=== PATIENT | male | born 1955 | race Two or more races ===

== ENCOUNTER 2016-09-28 16:37 | Inpatient (IN) | payer MEDICARE, OTHER ==
[~2016-09-28] VITALS: Ht 152.4 cm; Wt 80.8 kg
--- NOTE | 2016-09-28 17:56 | PHYS DOC ---
Past Medical History Past Medical History: Arthritis, CHF, COPD, CVA, Diabetes-Type II, Hypertension , [place] Alcohol Use: Occasionally Drug Use: None Adult General Chief Complaint Chief Complaint: LOWER EXTREMITY SWELLING HPI HPI Patient is a 61 year old male who presents with bilateral lower extremity edema. Patient reports three-day history of increased pain and swelling to bilateral lower extremities extending from his ankles to his scrotum and abdomen. Reports pain and swelling are symmetric. Denies fevers or chills, chest pain, shortness of breath. History of CHF for which she takes Lasix and states he has been compliant. He has history of previous hospital admissions to [facility]. 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 Oxygen saturation upon arrival was in the 80s requiring placement of nasal cannula. Review of Systems Review of Systems Constitutional: Denies fever or chills Eyes: Denies change in visual acuity HENT: Denies nasal congestion or sore throat Respiratory: Denies cough or shortness of breath Cardiovascular: Denies chest pain, reports edema GI: Denies abdominal pain, nausea, vomiting, bloody stools or diarrhea Musculoskeletal: Reports leg pain and swelling Integument: Reports lower extremity rash Neurologic: Denies headache, focal weakness or sensory changes Current Medications Current Medications Current Medications Medications (Trade) Dose Ordered Sig/Ramiro Start Time Stop Time Status Last Admin Dose Admin Furosemide (Lasix) 40 mg 1X ONCE 09/28/16 18:45 09/28/16 18:46 DC 09/28/16 19:01 40 MG Vancomycin HCl (Vanco Per Pharmacy) 1 each PRN DAILY PRN 09/28/16 18:45 Vancomycin HCl 2 gm/Sodium Chloride 500 ml @ 250 mls/hr 1X ONCE 09/28/16 19:00 09/28/16 20:59 DC 09/28/16 19:10 250 MLS/HR Allergies Allergies Allergies Coded Allergies Type Severity Reaction Last Updated Verified lisinopril Allergy Mild COUGH 09/28/16 Yes Physical Exam Physical Exam Constitutional: Well developed, well nourished, no acute distress, non-toxic appearance. HENT: Normocephalic, atraumatic, bilateral external ears normal, oropharynx moist, nose normal. Eyes: conjunctiva normal, no discharge. Neck: supple, no stridor. Cardiovascular: RRR, no murmurs, no edema. Lungs & Thorax: Diminished breath sounds, LCTAB, no wheezing, no respiratory distress. Abdomen: soft, nontender, nondistended. Skin: Warm, dry, no erythema, no rash. Back: No tenderness. Extremities: 3+ pitting edema extending from ankles to thighs, bilateral calf tenderness present, distal pulses palpable Neurologic: Alert and oriented X 3, no focal deficits noted. Psychologic: Affect normal, judgement normal, mood normal. Current Patient Data Vital Signs Vital Signs Date Time Temp Pulse Resp B/P (MAP) Pulse Ox O2 Delivery O2 Flow Rate FiO2 09/28/16 17:30 98.4 72 22 195/89 (124) 87 Room Air 98.4 Lab Values Laboratory Tests Test 09/28/16 17:35 White Blood Count 7.6 x10^3/uL (4.0-11.0) Red Blood Count 5.35 x10^6/uL (4.30-5.70) Hemoglobin 14.3 g/dL (13.0-17.5) Hematocrit 45.6 % (39.0-53.0) Mean Corpuscular Volume 85 fL (79-100) Mean Corpuscular Hemoglobin 27 pg (25-35) Mean Corpuscular Hemoglobin Concent 31 g/dL (31-37) Red Cell Distribution Width 16.6 % (11.5-14.5) H Platelet Count 258 x10^3/uL (140-400) Neutrophils (%) (Auto) 76 % (31-73) H Lymphocytes (%) (Auto) 10 % (24-48) L Monocytes (%) (Auto) 12 % (0-9) H Eosinophils (%) (Auto) 1 % (0-3) Basophils (%) (Auto) 1 % (0-3) Neutrophils # (Auto) 5.8 x10^3uL (1.8-7.7) Lymphocytes # (Auto) 0.8 x10^3/uL (1.0-4.8) L Monocytes # (Auto) 0.9 x10^3/uL (0.0-1.1) Eosinophils # (Auto) 0.1 x10^3/uL (0.0-0.7) Basophils # (Auto) 0.0 x10^3/uL (0.0-0.2) Prothrombin Time 13.3 SEC (11.7-14.0) Prothrombin Time INR 1.1 (0.8-1.1) PTT 38 SEC (24-38) Sodium Level 145 mmol/L (136-145) Potassium Level 4.1 mmol/L (3.5-5.1) Chloride Level 106 mmol/L (98-107) Carbon Dioxide Level 35 mmol/L (21-32) H Anion Gap 4 (6-14) L Blood Urea Nitrogen 16 mg/dL (8-26) Creatinine 1.0 mg/dL (0.7-1.3) Estimated GFR (Cockcroft-Gault) 76.5 BUN/Creatinine Ratio 16 (6-20) Glucose Level 72 mg/dL (70-99) Calcium Level 9.1 mg/dL (8.5-10.1) Total Bilirubin 0.5 mg/dL (0.2-1.0) Aspartate Amino Transferase (AST) 14 U/L (15-37) L Alanine Aminotransferase (ALT) 23 U/L (16-63) Alkaline Phosphatase 117 U/L (46-116) H Troponin I Quantitative 0.023 ng/mL (0.000-0.055) UM-Nqm-D-Type Natriuretic Peptide 1366 pg/mL (0-124) H Total Protein 7.4 g/dL (6.4-8.2) Albumin 2.9 g/dL (3.4-5.0) L Albumin/Globulin Ratio 0.6 (1.0-1.7) L Laboratory Tests 09/28/16 17:35 Laboratory Tests 09/28/16 17:35 EKG EKG interpreted by me: NSR rate 69, no acute ST/T wave changes, normal intervals, no ectopy.[] Radiology/Procedures Radiology/Procedures CXR: interpreted by me: cardiomegaly, pulmonary edema, no infiltrate, no pneumothorax.[] Course & Med Decision Making Course & Med Decision Making Pertinent Labs and Imaging studies reviewed. (See chart for details) The patient presents with lower extremity edema and dyspnea. Hypoxic on room air requiring oxygen by nasal cannula to maintain oxygen saturation greater than 90%. No distress at time of my exam. BNP elevated with cardiomegaly and pulmonary edema on chest x-ray. Obvious peripheral edema. Gave IV Lasix in the emergency department. Has overlying erythema of lower extremities. Also gave vancomycin for cellulitis. Recommended admission to the hospital for further evaluation and treatment. The patient agreed with plan of care. Discussed with Dr. hamilton who agrees to admit to inpatient status. Cardiology consult to Dr. Velez. The patient is being admitted in stable condition. [] Dragon Disclaimer Dragon Disclaimer This electronic medical record was generated, in whole or in part, using a voice recognition dictation system. Departure Departure Impression: Primary Impression: Acute exacerbation of congestive heart failure Additional Impressions: Peripheral edema Hypoxia Essential hypertension Disposition: 09 ADMITTED INPATIENT Admitting Physician: Estefani Hamilton Condition: STABLE Problem Qualifiers DEQUAN SANCHES MD Sep 28, 2016 17:56
[2016-09-28 18:00] LABS: BASO % 1 % (0-3); EOS % 1 % (0-3); HEMATOCRIT 45.6 % (39.0-53.0); HEMOGLOBIN 14.3 g/dL (13.0-17.5); LYMPH # 0.8 x10^3/uL (1.0-4.8); LYMPH % 10 % (24-48); MEAN CORPUSCULAR HEMOGLOBIN 27 pg (25-35); MEAN CORPUSCULAR HGB CONC 31 g/dL (31-37); MEAN CORPUSCULAR VOLUME 85 fL (79-100); MONO % 12 % (0-9); NEUT % 76 % (31-73); PLATELET COUNT 258 x10^3/uL (140-400); RED BLOOD COUNT 5.35 x10^6/uL (4.30-5.70); RED CELL DISTRIBUTION WIDTH 16.6 % (11.5-14.5); WHITE BLOOD COUNT 7.6 x10^3/uL (4.0-11.0)
[2016-09-28] MEDS ORDERED: POTA20TA4 PO (18:02)
[2016-09-28] MEDS ORDERED: CLOP75TA PO (18:02)
[2016-09-28] MEDS ORDERED: DIAZ5TAB PO (18:02)
[2016-09-28] MEDS ORDERED: OXYC5CAP PO (18:02)
[2016-09-28] MEDS ORDERED: INSU100I13 SQ (18:02)
[2016-09-28] MEDS ORDERED: FAMO-63 PO (18:02)
[2016-09-28] MEDS ORDERED: DIPH25CA58 PO (18:02)
[2016-09-28] MEDS ORDERED: LIPITOR80 MG PO (18:02)
[2016-09-28] MEDS ORDERED: LOSA100T2 PO (18:02)
[2016-09-28] MEDS ORDERED: CARV6.25 PO (18:02)
[2016-09-28] MEDS ORDERED: SPIR25TA PO (18:02)
[2016-09-28] MEDS ORDERED: SENN8.6T99 PO (18:02)
[2016-09-28] MEDS ORDERED: METF500T PO (18:02)
[2016-09-28 18:10] LABS: CALCIUM 9.1 mg/dL (8.5-10.1); GFR 76.5; POTASSIUM 4.1 mmol/L (3.5-5.1)
[2016-09-28 18:14] LABS: INR 1.1 (0.8-1.1); PROTHROMBIN TIME PATIENT 13.3 SEC (11.7-14.0)
[2016-09-28 18:20] LABS: ALBUMIN 2.9 g/dL (3.4-5.0); ALBUMIN/GLOBULIN RATIO 0.6 (1.0-1.7); TOTAL BILIRUBIN 0.5 mg/dL (0.2-1.0); TOTAL PROTEIN 7.4 g/dL (6.4-8.2)
[2016-09-28] MEDS ORDERED: FUROSEMIDE 40 MG/4 ML VIAL. IVP ONE (18:45)
--- NOTE | 2016-09-28 18:55 | RAD ---
EXAM: Bilateral lower extremity venous Doppler. HISTORY: Bilateral lower extremity pain/swelling. COMPARISON: None. FINDINGS: Grayscale and Doppler analysis of the both lower extremity deep venous systems was performed with graded compression and augmentation. The common femoral, greater saphenous, superficial femoral, popliteal and calf veins were assessed. There is no evidence of deep venous thrombosis. IMPRESSION: 1. No evidence of deep venous thrombosis. Electronically signed by: Veronica Humphries MD (09/28/2016 6:51 PM) [facility]
[2016-09-28] MEDS ORDERED: VANCOMYCIN 2 GM in IV NORMAL SALINE 500ML BAG 500 ML IV ONE (19:00)
[2016-09-28] MEDS ORDERED: ACETAMINOPHEN 325 MG TABLET. PO PRN (20:15)
[2016-09-28] MEDS ORDERED: NITROGLYCERIN SUBLINGUAL 0.4 MG BOTTLE OF 25. SL PRN (20:15)
[2016-09-28] MEDS ORDERED: ONDANSETRON PF 4 MG/2 ML VIAL. IV PRN (20:15)
[2016-09-28] MEDS ORDERED: MORPHINE SULFATE 2 MG/ML DISP.SYRIN. IV PRN (20:15)
[2016-09-28 20:30] VITALS: BP 175/77
[2016-09-28] MEDS ORDERED: PROAIR HFA8.5 GM INH (21:06)
[2016-09-28] MEDS ORDERED: ASPI-482 PO (21:06)
[2016-09-28] MEDS ORDERED: POLY17PO29 PO (21:06)
[2016-09-28] MEDS ORDERED: CHLO25TA PO (21:06)
[2016-09-28] MEDS ORDERED: MAG355OR11 PO (21:06)
[2016-09-28] MEDS ORDERED: FLUT1DIS3 IH (21:06)
[2016-09-28] MEDS ORDERED: ALBUTEROL SULFATE 2.5 MG/3 ML NEBU. NEB PRN (22:30)
[2016-09-28] MEDS ORDERED: MAG HYDROX/ALUMINUM HYD/SIMETH 30 ML ORAL.SUSP PO PRN (22:30)
[2016-09-28] MEDS ORDERED: oxyCODONE IR 5 MG TABLET PO PRN (22:30)
[2016-09-28] MEDS ORDERED: NON FORMULARY ITEM (Albuterol Sulfate (Proair Hfa Inhaler) 1 PUFF) INH PRN (22:30)
[2016-09-28] MEDS ORDERED: DEXTROSE 50% 25 GM / 50ML DISP.SYRIN. IV PRN (22:30)
[2016-09-28] MEDS ORDERED: diazePAM 5 MG TABLET PO PRN (22:30)
--- NOTE | 2016-09-28 22:39 | PDOC1 ---
History and Physical Date of Admission Date of Admission DATE: 09/28/16 TIME: 22:19 Identification/Chief Complaint Chief Complaint shortness of breath Problems: Source Source: Caregiver, Chart review, Patient History of Present Illness History of Present Illness MR. Forde, is a 61 year old male who presents with bilateral lower extremity edema. 3 days of worsening LE pain, and edema. Thebilateral lower extremities extending from his ankles to his scrotum and abdomen. Skin on LE is now red with mult small blisters that are deep novak in color and w fluctuance on touch. Reports pain and swelling are symmetric. Denies fevers or chills, chest pain, shortness of breath. History of CHF "[facility] told me I had a blown valve" he thinks he takes Lasix, but maybe metalozone. He saw Dr. Clinton at for [facility] a few weeks ago recent TIA, and recent carotid surg on the right He states he has been compliant, but seems unsure of some details hypoxia noted in ER Past Medical History Cardiovascular: CAD, CHF, HTN CENTRAL NERVOUS SYSTEM: TIA Musculoskeletal: low back pain Family History Family History: No Significant Social History Smoke: No ALCOHOL: none Drugs: None Current Problem List Problem List Problems Medical Problems: (1) Congestive heart failure Status: Acute Problems: Current Medications Current Medications Current Medications Furosemide (Lasix) 40 mg 1X ONCE IVP Last administered on 09/28/16 19:01; Start 09/28/16 at 18:45; Stop 09/28/16 at 18:46; Status DC Vancomycin HCl (Vanco Per Pharmacy) 1 each PRN DAILY PRN MC SEE COMMENTS; Start 09/28/16 at 18:45 Vancomycin HCl 2 gm/Sodium Chloride 500 ml @ 250 mls/hr 1X ONCE IV Last administered on 09/28/16 19:10; Start 09/28/16 at 19:00; Stop 09/28/16 at 20:59 ; Status DC Ondansetron HCl (Zofran) 4 mg PRN Q8HRS PRN IV NAUSEA/VOMITING; Start 09/28/16 at 20:15; Stop 09/29/16 at 20:14 Morphine Sulfate 2 mg PRN Q2HR PRN IV PAIN; Start 09/28/16 at 20:15; Stop 09/29 at 20:14 Acetaminophen (Tylenol) 650 mg PRN Q4HRS PRN PO FEVER; Start 09/28/16 at 20:15 ; Stop 09/29/16 at 20:14 Nitroglycerin (Nitrostat) 0.4 mg PRN Q5MIN PRN SL CHEST PAIN; Start 09/28/16 at 20:15; Stop 09/29/16 at 20:14 Active Scripts Active Reported Proair Hfa Inhaler (Albuterol Sulfate) 8.5 Gm Hfa.aer.ad 1 Puff INH PRN Q6HRS PRN Advair 250-50 Diskus (Fluticasone/Salmeterol) 1 Each Disk.w.dev 1 Puff IH BID Miralax (Polyethylene Glycol 3350) 17 Gm Powd.pack 1 Packet PO DAILY Chlorthalidone 25 Mg Tablet 1 Tab PO DAILY Aspir 81 (Aspirin) 81 Mg Tablet.dr 81 Mg PO DAILY Maalox Advanced Suspension (Mag Hydrox/Aluminum Hyd/Simeth) 355 Ml Oral.susp 355 Ml PO PRN Q4HRS Aldactone (Spironolactone) 25 Mg Tablet 1 Tab PO DAILY Senokot (Sennosides) 8.6 Mg Tablet 2 Tab PO BID Klor-Con M20 (Potassium Chloride) 20 Meq Tab.er.prt 1 Tab PO DAILY Oxycodone Hcl 5 Mg Capsule 1 Cap PO PRN Q4HRS PRN Glucophage (Metformin Hcl) 500 Mg Tablet 1,000 Mg PO BIDWMEALS Cozaar (Losartan Potassium) 100 Mg Tablet 100 Mg PO DAILY Lantus Solostar (Insulin Glargine,Hum.rec.anlog) 100 Unit/1 Ml Insuln.pen 45 Unit SQ HS Pepcid (Famotidine) 20 Mg Tablet 20 Mg PO BID Benadryl (Diphenhydramine Hcl) 25 Mg Capsule 1 Cap PO QHS Valium (Diazepam) 5 Mg Tablet 5 Mg PO TID PRN Clopidogrel (Clopidogrel Bisulfate) 75 Mg Tablet 1 Tab PO DAILY Coreg (Carvedilol) 6.25 Mg Tablet 1 Tab PO BID Lipitor (Atorvastatin Calcium) 80 Mg Tablet 1 Tab PO DAILY Allergies Allergies: Coded Allergies: lisinopril (Verified Allergy, Mild, COUGH, 09/28/16) ROS General: No: Chills, Night Sweats, Fatigue, Malaise, Appetite, Other PSYCHOLOGICAL ROS: No: Anxiety, Behavioral Disorder, Concentration difficultie , Decreased libido, Depression, Disorientation, Hallucinations, Hostility, Irritablity, Memory difficulties, Mood Swings, Obsessive thoughts, Physical abuse, Sexual abuse, Sleep disturbances, Suicidal ideation, Other Eyes: No Blurry vision, No Decreased vision, No Double vision, No Dry eyes, No Excessive tearing, No Eye Pain, No Itchy Eyes, No Loss of vision, No Photophobia , No Scotomata, No Uses contacts, No Uses glasses, No Other HEENT: No: Heacaches, Visual Changes, Hearing change, Nasal congestion, Nasal discharge, Oral lesions, Sinus pain, Sore Throat, Epistaxis, Sneezing, Snoring, Tinnitus, Vertigo, Vocal changes, Other Respiratory: YES: SOB with excertion, No: Cough, Hemoptysis, Orthopnea, Pleuritic Pain, Shortness of breath, Sputum Changes, Stridor, Tachypnea, Wheezing, Other Cardiovascular: yes Edema, No Chest Pain, No Palpitations, No Orthopnea, No Paroxysmal Noc. Dyspnea, No Lt Headedness, No Other Gastrointestinal: Yes Nausea, No Vomiting, No Abdominal Pain, No Diarrhea, No Constipation, No Melena, No Hematochezia, No Other Genitourinary: No Dysuria, No Frequency, No Incontinence, No Hematuria, No Retention, No Discharge, No Urgency, No Pain, No Flank Pain, No Other, No , No , No , No , No , No , No Musculoskeletal: Yes Joint Pain, Yes Joint Stiffness Neurological: No Behavorial Changes, No Bowel/Bladder ControlChng, No Confusion , No Dizziness, No Gait Disturbance, No Headaches, No Impaired Coord/balance, No Memory Loss, No Numbness/Tingling, No Seizures, No Speech Problems, No Tremors, No Visual Changes, No Weakness, No Other Skin: No Dry Skin, No Eczema, No Hair Changes, No Lumps, No Mole Changes, No Mottling, No Nail Changes, No Pruritus, No Rash, No Skin Lesion Changes, No Other, No Acne Physical Exam General: Alert, Oriented X3, Cooperative, No acute distress (feels improved from ER) HEENT: EOMI Lungs: Clear to auscultation, Normal air movement Abdomen: Normal bowel sounds, Soft Extremities: No clubbing, Other (3+ LE edema bilat, to thighs, legs, less on feet) Skin: Other (erthema with mult small dark red lesions with fluid) Neuro: Normal speech, Sensation intact Psych/Mental Status: Mental status NL, Mood NL Vitals Vitals Vital Signs Date Time Temp Pulse Resp B/P (MAP) Pulse Ox O2 Delivery O2 Flow Rate FiO2 09/28/16 20:30 98.2 78 20 175/77 (109) 94 Nasal Cannula 2.0 98.2 Labs Labs Laboratory Tests Test 09/28/16 17:35 09/28/16 20:44 White Blood Count 7.6 x10^3/uL (4.0-11.0) Red Blood Count 5.35 x10^6/uL (4.30-5.70) Hemoglobin 14.3 g/dL (13.0-17.5) Hematocrit 45.6 % (39.0-53.0) Mean Corpuscular Volume 85 fL (79-100) Mean Corpuscular Hemoglobin 27 pg (25-35) Mean Corpuscular Hemoglobin Concent 31 g/dL (31-37) Red Cell Distribution Width 16.6 % (11.5-14.5) Platelet Count 258 x10^3/uL (140-400) Neutrophils (%) (Auto) 76 % (31-73) Lymphocytes (%) (Auto) 10 % (24-48) Monocytes (%) (Auto) 12 % (0-9) Eosinophils (%) (Auto) 1 % (0-3) Basophils (%) (Auto) 1 % (0-3) Neutrophils # (Auto) 5.8 x10^3uL (1.8-7.7) Lymphocytes # (Auto) 0.8 x10^3/uL (1.0-4.8) Monocytes # (Auto) 0.9 x10^3/uL (0.0-1.1) Eosinophils # (Auto) 0.1 x10^3/uL (0.0-0.7) Basophils # (Auto) 0.0 x10^3/uL (0.0-0.2) Prothrombin Time 13.3 SEC (11.7-14.0) Prothromb Time International Ratio 1.1 (0.8-1.1) Activated Partial Thromboplast Time 38 SEC (24-38) Sodium Level 145 mmol/L (136-145) Potassium Level 4.1 mmol/L (3.5-5.1) Chloride Level 106 mmol/L (98-107) Carbon Dioxide Level 35 mmol/L (21-32) Anion Gap 4 (6-14) Blood Urea Nitrogen 16 mg/dL (8-26) Creatinine 1.0 mg/dL (0.7-1.3) Estimated GFR (Cockcroft-Gault) 76.5 BUN/Creatinine Ratio 16 (6-20) Glucose Level 72 mg/dL (70-99) Calcium Level 9.1 mg/dL (8.5-10.1) Total Bilirubin 0.5 mg/dL (0.2-1.0) Aspartate Amino Transf (AST/SGOT) 14 U/L (15-37) Alanine Aminotransferase (ALT/SGPT) 23 U/L (16-63) Alkaline Phosphatase 117 U/L (46-116) Troponin I Quantitative 0.023 ng/mL (0.000-0.055) PN-Fsg-V-Type Natriuretic Peptide 1366 pg/mL (0-124) Total Protein 7.4 g/dL (6.4-8.2) Albumin 2.9 g/dL (3.4-5.0) Albumin/Globulin Ratio 0.6 (1.0-1.7) Glucose (Fingerstick) 160 mg/dL (70-99) Laboratory Tests Test 09/28/16 17:35 09/28/16 20:44 White Blood Count 7.6 x10^3/uL (4.0-11.0) Red Blood Count 5.35 x10^6/uL (4.30-5.70) Hemoglobin 14.3 g/dL (13.0-17.5) Hematocrit 45.6 % (39.0-53.0) Mean Corpuscular Volume 85 fL (79-100) Mean Corpuscular Hemoglobin 27 pg (25-35) Mean Corpuscular Hemoglobin Concent 31 g/dL (31-37) Red Cell Distribution Width 16.6 % (11.5-14.5) Platelet Count 258 x10^3/uL (140-400) Neutrophils (%) (Auto) 76 % (31-73) Lymphocytes (%) (Auto) 10 % (24-48) Monocytes (%) (Auto) 12 % (0-9) Eosinophils (%) (Auto) 1 % (0-3) Basophils (%) (Auto) 1 % (0-3) Neutrophils # (Auto) 5.8 x10^3uL (1.8-7.7) Lymphocytes # (Auto) 0.8 x10^3/uL (1.0-4.8) Monocytes # (Auto) 0.9 x10^3/uL (0.0-1.1) Eosinophils # (Auto) 0.1 x10^3/uL (0.0-0.7) Basophils # (Auto) 0.0 x10^3/uL (0.0-0.2) Prothrombin Time 13.3 SEC (11.7-14.0) Prothromb Time International Ratio 1.1 (0.8-1.1) Activated Partial Thromboplast Time 38 SEC (24-38) Sodium Level 145 mmol/L (136-145) Potassium Level 4.1 mmol/L (3.5-5.1) Chloride Level 106 mmol/L (98-107) Carbon Dioxide Level 35 mmol/L (21-32) Anion Gap 4 (6-14) Blood Urea Nitrogen 16 mg/dL (8-26) Creatinine 1.0 mg/dL (0.7-1.3) Estimated GFR (Cockcroft-Gault) 76.5 BUN/Creatinine Ratio 16 (6-20) Glucose Level 72 mg/dL (70-99) Calcium Level 9.1 mg/dL (8.5-10.1) Total Bilirubin 0.5 mg/dL (0.2-1.0) Aspartate Amino Transf (AST/SGOT) 14 U/L (15-37) Alanine Aminotransferase (ALT/SGPT) 23 U/L (16-63) Alkaline Phosphatase 117 U/L (46-116) Troponin I Quantitative 0.023 ng/mL (0.000-0.055) ZP-Oat-A-Type Natriuretic Peptide 1366 pg/mL (0-124) Total Protein 7.4 g/dL (6.4-8.2) Albumin 2.9 g/dL (3.4-5.0) Albumin/Globulin Ratio 0.6 (1.0-1.7) Glucose (Fingerstick) 160 mg/dL (70-99) VTE Prophylaxis Ordered VTE Prophylaxis Devices: No VTE Pharmacological Prophylaxi: Yes Assessment/Plan Assessment/Plan acute hypoxic respiratory failure acute systolic CHF exacerbation with anasarca adn hypoxia he reports valvular dysfuntion, S4 but no clear or consistent murmur, will check echo, DM2 anxiety d/o moderate malnutrition in obesity, BMI 36 admit to CV tele PARVEZ MALONE MD Sep 28, 2016 22:39
[2016-09-28 22:50] VITALS: BP 157/66
[2016-09-28] MEDS ORDERED: INSULIN DETEMIR 300 UNITS/3 ML INSULN.PEN. SQ SCH (23:00)
[2016-09-28] MEDS: diphenhydrAMINE HCL 25 MG CAPSULE PO SCH (23:10)
[2016-09-28] MEDS: FAMOTIDINE 20 MG TABLET. PO SCH (23:10)
[2016-09-28] MEDS ORDERED: ASPIRIN 325 MG TABLET PO ONE (23:30)
[2016-09-29] MEDS: VANCOMYCIN PER PHARMACY MC PRN ×2 (00:32→13:26)
--- NOTE | 2016-09-29 01:33 | ACF ---
Admission Forms Criteria HEART FAILURE (Place 'X' for any and all applicable criteria): Admission to inpatient status for two midnights or more is indicated by ANY ONE of the following(1)(2)(3)(4) [ ]I. Hemodynamic instability [ ]II. Severe electrolyte abnormalities requiring inpatient care(9) [ ]III. Cardiac arrhythmias of immediate concern Anasarca [ ]IV. Precipitating cause for acute decompensation (eg, pneumonia, pulmonary embolism)[ ]V. [ ]V. Acute cardiac ischemia causing or associated with failure (Also use Angina or Myocardial Infarction as appropriate) [ ]. Pulmonary edema that is very severe (eg, mechanical ventilation needed, imminent or likely, need for 100% oxygen to keep oxygen saturation above 90%) [ ]VII. Massive skin edema (anasarca) with complications (eg tissue breakdown with infection, inability to void due to edema) [A] [X]VIII. Inpatient admission required rather than observation care (See Heart Failure: Observation Care as appropriate) because of 1 or more of the following: [ ]a) Pulmonary edema that is severe or worsening as indicated by ALL of the following : [ ]1) New need for oxygen therapy to keep oxygen saturation above 90% (or increased FiO2 need from baseline) [ ]2) Has not improved sufficiently with emergency department or observation care IV diuretics or other heart failure treatments[C] [ ]b) Altered mental status that is severe or persistent [ ]c) Increased creatinine (new on laboratory test) with reduction of more than 50% in estimated glomerular filtration rate from baseline. [ ]d) Progressively (ongoing) rising creatinine (known from past laboratory test) with reduction of more than 25% in estimated glomerular filtration rate from baseline [ ]e) Acute renal insufficiency (progressively (ongoing) rising creatinine (known from past laboratory test) with reduction of more than 25% in estimated glomerular filtration rate from baseline [ ]f) Acute renal failure [ ]g) Acute peripheral ischemia (e.g., examination shows pulseless, cool, mottled, or cyanotic extremity) [X]h) Oyxgen administration or respiratory treatments have been needed for over 24 hours that are performable only in acute inpatient setting [ ]i) Pulmonary artery catheter monitoring [ ]j) Other condition, treatment or monitoring requiring inpatient admission Extended stay beyond goal length of stay may be needed for(1)(3)(21)(25): [ ]a) Cardiac ischemia, confirmed or suspected as precipitant [ ]b) Cardiogenic shock [ ]c) Acute renal failure [ ]d) Stage IV chronic kidney disease (estimated glomerular filteration rate of less than 30 ML/min/1.73m2 (0.50 mL/sec/1.73m2), and not previously on chronic dialysis [ ]e) Respiratory failure (eg, need for noninvasive or invasive mechanical ventilation) (23) [ ]f) Concomitant pneumonia or significant electrolyte abnormality (eg, severe hyponatremia) [ ]g) Newly diagnosed (new onset) atrial fibrillation The original [employer] content created by [employer] has been revised. The portions of the content which have been revised are identified through the use of italic text, and [employer] [facility] has neither reviewed nor approved the modified material. All other unmodified content is copyright [employer]. Please see references footnoted in the original [facility] [employer] edition 2014 Admission Criteria Met?: Yes MALAIKA RUVALCABA Sep 29, 2016 01:33
[2016-09-29 03:25] VITALS: BP 150/69
[2016-09-29 04:24] LABS: BASO % 0 % (0-3); EOS % 2 % (0-3); HEMATOCRIT 43.3 % (39.0-53.0); HEMOGLOBIN 13.5 g/dL (13.0-17.5); LYMPH # 0.8 x10^3/uL (1.0-4.8); LYMPH % 12 % (24-48); MEAN CORPUSCULAR HEMOGLOBIN 27 pg (25-35); MEAN CORPUSCULAR HGB CONC 31 g/dL (31-37); MEAN CORPUSCULAR VOLUME 85 fL (79-100); MONO % 12 % (0-9); NEUT % 74 % (31-73); PLATELET COUNT 222 x10^3/uL (140-400); RED CELL DISTRIBUTION WIDTH 16.2 % (11.5-14.5); WHITE BLOOD COUNT 6.5 x10^3/uL (4.0-11.0)
[2016-09-29 04:44] LABS: ALBUMIN 2.6 g/dL (3.4-5.0); ALBUMIN/GLOBULIN RATIO 0.8 (1.0-1.7); CALCIUM 7.9 mg/dL (8.5-10.1); GFR 76.5; POTASSIUM 4.2 mmol/L (3.5-5.1); TOTAL BILIRUBIN 0.5 mg/dL (0.2-1.0); TOTAL PROTEIN 5.9 g/dL (6.4-8.2)
[2016-09-29] MEDS: VANCOMYCIN 1.25 GM in IV NORMAL SALINE 250ML 250 ML IV SCH ×2 (06:20→18:33)
--- NOTE | 2016-09-29 07:02 | EKG ---
[facility] [address] [place] [address] Test Date: 2016-09-28 Test Time: 17:36:08 Pat Name: DIXIE PADILLA Department: Room: 202 1 Gender: M Surgical Attendant: : 1955 Requested By: DEQUAN SANCHES Order Number: [id number] Reading MD: Cory Velez Measurements Intervals [place] Rate: 69 P: 36 [place]: 206 QRS: 84 QRSD: 108 T: 57 QT: 432 QTc: 465 Interpretive Statements SINUS RHYTHM NONSPECIFIC EKG CHANGES Electronically Signed On 09-29-2016 9:32:03 CDT by Cory Velez
[2016-09-29 07:15] VITALS: BP 148/65
--- NOTE | 2016-09-29 07:20 | RAD ---
CHEST AP ONLY Clinical Indication: sob Comparison: None. Findings: Low lung volume. No focal consolidation. Remote granulomatous disease. Pulmonary vascular indistinctness. No pleural effusion or pneumothorax. The cardiomediastinal silhouette is enlarged. The great vessels of the thorax are normal. No acute osseous abnormality. IMPRESSION: 1. No focal consolidation. 2. Cardiomegaly with pulmonary vascular indistinctness which can be seen with early pulmonary edema.
[2016-09-29] MEDS ORDERED: ALBUTEROL SULFATE 2.5 MG/3 ML NEBU. NEB SCH (08:00)
[2016-09-29] MEDS: INSULIN ASPART 300 UNITS/3 ML INSULN.PEN SQ SCH ×3 (08:00→17:00)
[2016-09-29] MEDS ORDERED: NON FORMULARY ITEM (Fluticasone/Salmeterol (Advair 250-50 Diskus) 1 PUFF) IH SCH (09:00)
--- NOTE | 2016-09-29 10:41 | PDOC2 ---
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 ECONOMICS LECTURER 09/29/16 1040: CARDIAC CONSULT DATE OF CONSULT Date of Consult DATE: 09/29/16 TIME: 10:17 REASON FOR CONSULT Reason for Consult: CHF REFERRING PHYSICIAN Referring Physician: Latasha SOURCE Source: Chart review, Patient HISTORY OF PRESENT ILLNESS HISTORY OF PRESENT ILLNESS This is a 61 yo male admitted for complains of SOA/MILLER. Reports The he did not want to come to the hospital and he talked to his daughter and convinced him to come to ED. He is rather a poor historian at this time with him easily getting to sleep easily while I was talking to him waking him up multiple times otherwise he is Ox3. Reports of increasing leg edema and MILLER. Denies any CP or palpitations. Positive for orthopnea. No recent falls, dizziness. He does have a ammonia technician in in which he saw about 2 weeks ago. No prior VTE but possible CAD. Presently remain lethargic. He does have hx of CHF and takes diuretic at home. Denies COPD but has asthma. Denies any past arrhythmia. Positive for HTN, HLP, DM2. PAST MEDICAL HISTORY Cardiovascular: CAD, CHF, HTN, Hyperlipidemia Pulmonary: Asthma CENTRAL NERVOUS SYSTEM: TIA GI: Constipation, GERD Heme/Onc: No pertinent hx Hepatobiliary: No pertinent hx Psych: No pertinent hx Musculoskeletal: Osteoarthritis Rheumatologic: No pertinent hx Infectious disease: No pertinent hx ENT: No pertinent hx Renal/: No pertinent hx Endocrine: Diabetes (2) Dermatology: No pertinent hx PAST SURGICAL HISTORY Past Surgical History: Other (?LHC 2 yrs ago) FAMILY HISTORY Family History: Heart Disease (father) SOCIAL HISTORY Smoke: No ALCOHOL: occassional Drugs: None Lives: Alone CURRENT MEDICATIONS CURRENT MEDICATIONS Current Medications Medications (Trade) Dose Ordered Sig/Ramiro Route PRN Reason Start Time Stop Time Status Last Admin Dose Admin Furosemide (Lasix) 40 mg 1X ONCE IVP 09/28/16 18:45 09/28/16 18:46 DC 09/28/16 19:01 Vancomycin HCl (Vanco Per Pharmacy) 1 each PRN DAILY PRN MC SEE COMMENTS 09/28/16 18:45 09/29/16 00:32 Vancomycin HCl 2 gm/Sodium Chloride 500 ml @ 250 mls/hr 1X ONCE IV 09/28/16 19:00 09/28/16 20:59 DC 09/28/16 19:10 Diphenhydramine HCl (Benadryl) 25 mg QHS PO 09/28/16 23:00 09/28/16 23:10 Famotidine (Pepcid) 20 mg BID PO 09/28/16 23:00 09/28/16 23:10 Insulin Detemir (Levemir) 45 units QHS SQ 09/28/16 23:00 09/28/16 23:11 Aspirin (Kyra Aspirin) 325 mg 1X ONCE PO 09/28/16 23:30 09/28/16 23:31 DC 09/28/16 23:10 Vancomycin HCl 1.25 gm/Sodium Chloride 250 ml @ 167 mls/hr Q12H IV 09/29/16 07:00 09/29/16 06:20 ALLERGIES ALLERGIES: Coded Allergies: lisinopril (Verified Allergy, Mild, COUGH, 09/28/16) ROS Review of System limited pt lethargic, see HPI PHYSICAL EXAM General: Oriented X3, Cooperative, mild distress HEENT: Atraumatic, Mucous membr. moist/pink Lungs: Other (expiratory wheeze) Heart: Regular rate (SR), Normal S1, Normal S2, Other (2/6 systolic murmur to LLS border ) Abdomen: Soft, No tenderness Extremities: No cyanosis, Other (2+ bilateral LE pitting edema) Neuro: Sensation intact, Other (lethargic) Psych/Mental Status: Mood NL MUSCULOSKELETAL: Osteoarthritic changes both hands VITALS VITALS Vital Signs Date Time Temp Pulse Resp B/P (MAP) Pulse Ox O2 Delivery O2 Flow Rate FiO2 09/29/16 07:15 98.3 60 18 148/65 (92) 98 Nasal Cannula 2.0 98.3 LABS Lab: Laboratory Tests Test 09/28/16 17:35 09/28/16 20:44 09/29/16 03:45 09/29/16 07:21 White Blood Count 7.6 x10^3/uL (4.0-11.0) 6.5 x10^3/uL (4.0-11.0) Red Blood Count 5.35 x10^6/uL (4.30-5.70) 5.10 x10^6/uL (4.30-5.70) Hemoglobin 14.3 g/dL (13.0-17.5) 13.5 g/dL (13.0-17.5) Hematocrit 45.6 % (39.0-53.0) 43.3 % (39.0-53.0) Mean Corpuscular Volume 85 fL (79-100) 85 fL (79-100) Mean Corpuscular Hemoglobin 27 pg (25-35) 27 pg (25-35) Mean Corpuscular Hemoglobin Concent 31 g/dL (31-37) 31 g/dL (31-37) Red Cell Distribution Width 16.6 % (11.5-14.5) 16.2 % (11.5-14.5) Platelet Count 258 x10^3/uL (140-400) 222 x10^3/uL (140-400) Neutrophils (%) (Auto) 76 % (31-73) 74 % (31-73) Lymphocytes (%) (Auto) 10 % (24-48) 12 % (24-48) Monocytes (%) (Auto) 12 % (0-9) 12 % (0-9) Eosinophils (%) (Auto) 1 % (0-3) 2 % (0-3) Basophils (%) (Auto) 1 % (0-3) 0 % (0-3) Neutrophils # (Auto) 5.8 x10^3uL (1.8-7.7) 4.8 x10^3uL (1.8-7.7) Lymphocytes # (Auto) 0.8 x10^3/uL (1.0-4.8) 0.8 x10^3/uL (1.0-4.8) Monocytes # (Auto) 0.9 x10^3/uL (0.0-1.1) 0.8 x10^3/uL (0.0-1.1) Eosinophils # (Auto) 0.1 x10^3/uL (0.0-0.7) 0.1 x10^3/uL (0.0-0.7) Basophils # (Auto) 0.0 x10^3/uL (0.0-0.2) 0.0 x10^3/uL (0.0-0.2) Prothrombin Time 13.3 SEC (11.7-14.0) Prothromb Time International Ratio 1.1 (0.8-1.1) Activated Partial Thromboplast Time 38 SEC (24-38) Sodium Level 145 mmol/L (136-145) 146 mmol/L (136-145) Potassium Level 4.1 mmol/L (3.5-5.1) 4.2 mmol/L (3.5-5.1) Chloride Level 106 mmol/L (98-107) 105 mmol/L (98-107) Carbon Dioxide Level 35 mmol/L (21-32) 39 mmol/L (21-32) Anion Gap 4 (6-14) 2 (6-14) Blood Urea Nitrogen 16 mg/dL (8-26) 16 mg/dL (8-26) Creatinine 1.0 mg/dL (0.7-1.3) 1.0 mg/dL (0.7-1.3) Estimated GFR (Cockcroft-Gault) 76.5 76.5 BUN/Creatinine Ratio 16 (6-20) 16 (6-20) Glucose Level 72 mg/dL (70-99) 167 mg/dL (70-99) Calcium Level 9.1 mg/dL (8.5-10.1) 7.9 mg/dL (8.5-10.1) Total Bilirubin 0.5 mg/dL (0.2-1.0) 0.5 mg/dL (0.2-1.0) Aspartate Amino Transf (AST/SGOT) 14 U/L (15-37) 12 U/L (15-37) Alanine Aminotransferase (ALT/SGPT) 23 U/L (16-63) 19 U/L (16-63) Alkaline Phosphatase 117 U/L (46-116) 100 U/L (46-116) Troponin I Quantitative 0.023 ng/mL (0.000-0.055) 0.029 ng/mL (0.000-0.055) MT-Egm-B-Type Natriuretic Peptide 1366 pg/mL (0-124) Total Protein 7.4 g/dL (6.4-8.2) 5.9 g/dL (6.4-8.2) Albumin 2.9 g/dL (3.4-5.0) 2.6 g/dL (3.4-5.0) Albumin/Globulin Ratio 0.6 (1.0-1.7) 0.8 (1.0-1.7) Glucose (Fingerstick) 160 mg/dL (70-99) 113 mg/dL (70-99) Test 09/29/16 08:10 Troponin I Quantitative 0.036 ng/mL (0.000-0.055) ASSESSMENT/PLAN ASSESSMENT/PLAN 1. Acute respiratory failure with hx of asthma: nonsmoker, suspect CO2 retention 2. Acute on chronic diastolic CHF 3. Suspect CARLIE 4. HTN: labile 5. DM2/HLP 6. Possible CAD: LHC about 2 yrs ago but not sure. 7. Hx of recent TIA: 06/2016? 8. Encephalopathy Recommendations 1. Continue with diuretic therapy 2. ABG, lipids, TSH, TTE today 3. Continue with secondary prevention, restart home BP meds. Pt is on ASA on plavix. and follow with ammonia technician 4. Obtain records, Repeat EKG 5. Pulmonary consult pending. Problems: LAURI CRUZ MD 09/29/16 1206: CARDIAC CONSULT ALLERGIES ALLERGIES: Coded Allergies: lisinopril (Verified Allergy, Mild, COUGH, 09/28/16) ASSESSMENT/PLAN ASSESSMENT/PLAN Patient seen and examined. Agree with above nurse practitioner note. 61-year-old male presenting to the hospital with acute on chronic lower extremity edema. He likely has diastolic heart failure in the setting of multiple issues including morbid obesity with a BMI greater than 36. Echocardiogram demonstrates moderate to severe pulmonary hypertension. On examination he has 1-2+ pitting edema of the lower extremities. Continue diuresis. Restart home medications and we will obtain records from the outside hospital for further assessment. Thank you for this consultation. Problems: 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 APRN Sep 29, 2016 10:40 LAURI CRUZ MD Sep 29, 2016 12:06
[2016-09-29] MEDS: LOSARTAN POTASSIUM 50 MG TABLET. PO SCH (10:50)
[2016-09-29] MEDS: POLYETHYLENE GLYCOL 3350 17 GM PACKET. PO SCH (10:50)
[2016-09-29] MEDS: FUROSEMIDE 40 MG/4 ML VIAL. IVP SCH ×2 (10:50→14:12)
[2016-09-29] MEDS: SENNOSIDES 8.6 MG TABLET PO SCH ×2 (10:51→21:03)
[2016-09-29] MEDS: CHLORTHALIDONE 25 MG TABLET. PO SCH (10:51)
[2016-09-29] MEDS: POTASSIUM CHLORIDE 20 MEQ TABLET.ER. PO SCH (10:51)
[2016-09-29] MEDS: FAMOTIDINE 20 MG TABLET. PO SCH ×2 (10:51→21:03)
[2016-09-29] MEDS: ASPIRIN ENTERIC COATED 81 MG TABLET.DR. PO SCH (10:51)
[2016-09-29] MEDS: SPIRONOLACTONE 25 MG TABLET PO SCH (10:51)
[2016-09-29 10:52] LABS: HCO3 ABG 35 mmol/L (21-28); PO2 ABG 71 mmHg (65-108); SAT O2 ABG 91 % (92-99)
[2016-09-29] MEDS: CLOPIDOGREL BISULFATE 75 MG TABLET PO SCH (10:52)
[2016-09-29] MEDS: metFORMIN 500 MG TABLET PO SCH ×2 (10:52→18:31)
[2016-09-29] MEDS: CARVEDILOL 6.25 MG TABLET. PO SCH ×2 (10:52→18:32)
[2016-09-29 11:00] VITALS: BP 115/71
[2016-09-29 11:01] LABS: CHOLESTEROL/HDL RATIO 3.4
[2016-09-29 11:09] LABS: PCO2 ABG 73 mmHg (35-46)
[2016-09-29 11:10] LABS: FIO2 ABG 26
--- NOTE | 2016-09-29 11:12 | CARD ---
APPROVED REPORT EXAM: Two-dimensional and M-mode echocardiogram with Doppler and color Doppler. Other Information Quality : Average Rhythm : NSR INDICATION Congenital Heart Disease Valvular dysfunction 2D DIMENSIONS RVDd2.8 (2.9-3.5cm)Left Atrium(2D)4.5 (1.6-4.0cm) IVSd1.4 (0.7-1.1cm)Aortic Root(2D)3.7 (2.0-3.7cm) LVDd5.6 (3.9-5.9cm)LVOT Diameter2.4 (1.8-2.4cm) PWd1.4 (0.7-1.1cm)LVDs3.8 (2.5-4.0cm) FS (%) 33.0 %SV93.3 ml LVEF(%)60.8 (>50%) Aortic Valve AoV Peak Dony.145.7cm/sAoV VTI32.9cm AO Peak GR.8.5mmHgLVOT Peak Dony.96.1cm/s LVOT VTI 22.77cmAO Mean GR.4mmHg URI (VMAX)3.71wb9FFE (VTI)3.23cm2 AI P 1/2 Qqim752af Mitral Valve MV E Ntxycuei52.1cm/sMV DECEL [id number] MV A Pehoqpou77.8cm/sMV E Mean Gr.2mmHg MV VPZ42vnZ/A Ratio1.5 MV A Snbyrzxq563afDXO (PHT)4.41cm2 TDI E/Lateral E'12.8E/Medial E'14.4 Pulmonary Valve PV Peak Pzlvwfvq55.0cm/sPV Peak Grad.3mmHg RVOT VTI16.3cm Tricuspid Valve TR P. Rdpemxqf022ec/sRAP SQOBFSLN9xvXk TR Peak Gr.85woIqXUES90coEq LEFT VENTRICLE The left ventricle is normal size. There is mild concentric left ventricular hypertrophy. Left ventri nati systolic function is normal. The Ejection Fraction is 55-60%. There is grossly normal LV segmenta l wall motion. Technically difficult study. Tissue Doppler imaging reveals moderate left ventricular diastolic dysfunction. There is no ventricular septal defect visualized. RIGHT VENTRICLE The right ventricle is normal size. The right ventricular systolic function is normal. ATRIA The left atrium is borderline dilated. The right atrium size is normal. The interatrial septum is int act with no evidence for an atrial septal defect or patent foramen ovale as noted on 2-D or Doppler i maging. AORTIC VALVE The aortic valve is normal in structure. The aortic valve is trileaflet. Doppler and Color Flow revea led mild aortic regurgitation. There is no significant aortic valvular stenosis. MITRAL VALVE Mitral annular calcification is mild. There is no mitral valve stenosis. Doppler and Color Flow revea led mild mitral regurgitation. TRICUSPID VALVE The tricuspid valve is normal in structure. Doppler and Color Flow revealed mild tricuspid regurgitat ion. There is severe pulmonary hypertension. The PA pressure was estimated at 77 mmHg. There is no tr icuspid valve stenosis. PULMONIC VALVE The pulmonic valve is not well visualized. Doppler and Color Flow revealed trace pulmonic valvular re gurgitation. There is no pulmonic valvular stenosis. GREAT VESSELS The aortic root is normal in size. Normal pulmonary venous flow (Doppler). The IVC is dilated and col lapses >50% with inspiration. PERICARDIAL EFFUSION There is no evidence of significant pericardial effusion. Critical Notification Critical Value: No <Conclusion> Left ventricle systolic function is normal. The Ejection Fraction is 55-60%. There is grossly normal LV segmental wall motion. Technically difficult study. Doppler and Color Flow revealed mild aortic regurgitation. Doppler and Color Flow revealed mild tricuspid regurgitation. There is severe pulmonary hypertension. The PA pressure was estimated at 77 mmHg.
[2016-09-29] MEDS: IPRATRPIUM/ALBUTEROL 0.5/2.5MG 3 ML NEBU. NEB SCH ×2 (11:32→19:38)
[2016-09-29] MEDS: BUDESONIDE 0.5 MG/2 ML NEBU. NEB SCH ×2 (11:33→19:38)
--- NOTE | 2016-09-29 14:21 | PDOC ---
PROGRESS NOTES Chief Complaint Chief Complaint acute hypoxic respiratory failure with diastolic CHF exacerbation, acute, and PHTN PHTN DM2 anxiety moderate malnutrition obesity, BMI 36 bl leg multiple folliculitis with mild cellulitis h/o CAD 05/2016 plan; fu with card, echo done lasix 40mg iv bid ptot dvt ppx decrease levemir to 40u qhs, ssi, check hba1c vanco for now nc as needed History of Present Illness History of Present Illness BL LEG mild erythema with multiple folliculitis, cellulitis bl leg edema 2+ on NC 2L, NEW TO Him Vitals Vitals Vital Signs Date Time Temp Pulse Resp B/P (MAP) Pulse Ox O2 Delivery O2 Flow Rate FiO2 09/29/16 11:38 90 1.5 09/29/16 11:00 98.3 59 20 115/71 (86) Nasal Cannula 98.3 Physical Exam General: Oriented X3, Cooperative, mild distress Heart: Regular rate (SR), Normal S1, Normal S2, Other (2/6 systolic murmur to LLS border ) Lungs: Clear Abdomen: Soft, No tenderness Extremities: No cyanosis, Other (2+ bilateral LE pitting edema) Skin: Other (erthema with mult small dark red lesions with fluid) Labs LABS Laboratory Tests Test 09/28/16 17:35 09/28/16 20:44 09/29/16 03:45 09/29/16 07:21 White Blood Count 7.6 x10^3/uL (4.0-11.0) 6.5 x10^3/uL (4.0-11.0) Red Blood Count 5.35 x10^6/uL (4.30-5.70) 5.10 x10^6/uL (4.30-5.70) Hemoglobin 14.3 g/dL (13.0-17.5) 13.5 g/dL (13.0-17.5) Hematocrit 45.6 % (39.0-53.0) 43.3 % (39.0-53.0) Mean Corpuscular Volume 85 fL (79-100) 85 fL (79-100) Mean Corpuscular Hemoglobin 27 pg (25-35) 27 pg (25-35) Mean Corpuscular Hemoglobin Concent 31 g/dL (31-37) 31 g/dL (31-37) Red Cell Distribution Width 16.6 % (11.5-14.5) 16.2 % (11.5-14.5) Platelet Count 258 x10^3/uL (140-400) 222 x10^3/uL (140-400) Neutrophils (%) (Auto) 76 % (31-73) 74 % (31-73) Lymphocytes (%) (Auto) 10 % (24-48) 12 % (24-48) Monocytes (%) (Auto) 12 % (0-9) 12 % (0-9) Eosinophils (%) (Auto) 1 % (0-3) 2 % (0-3) Basophils (%) (Auto) 1 % (0-3) 0 % (0-3) Neutrophils # (Auto) 5.8 x10^3uL (1.8-7.7) 4.8 x10^3uL (1.8-7.7) Lymphocytes # (Auto) 0.8 x10^3/uL (1.0-4.8) 0.8 x10^3/uL (1.0-4.8) Monocytes # (Auto) 0.9 x10^3/uL (0.0-1.1) 0.8 x10^3/uL (0.0-1.1) Eosinophils # (Auto) 0.1 x10^3/uL (0.0-0.7) 0.1 x10^3/uL (0.0-0.7) Basophils # (Auto) 0.0 x10^3/uL (0.0-0.2) 0.0 x10^3/uL (0.0-0.2) Prothrombin Time 13.3 SEC (11.7-14.0) Prothromb Time International Ratio 1.1 (0.8-1.1) Activated Partial Thromboplast Time 38 SEC (24-38) Sodium Level 145 mmol/L (136-145) 146 mmol/L (136-145) Potassium Level 4.1 mmol/L (3.5-5.1) 4.2 mmol/L (3.5-5.1) Chloride Level 106 mmol/L (98-107) 105 mmol/L (98-107) Carbon Dioxide Level 35 mmol/L (21-32) 39 mmol/L (21-32) Anion Gap 4 (6-14) 2 (6-14) Blood Urea Nitrogen 16 mg/dL (8-26) 16 mg/dL (8-26) Creatinine 1.0 mg/dL (0.7-1.3) 1.0 mg/dL (0.7-1.3) Estimated GFR (Cockcroft-Gault) 76.5 76.5 BUN/Creatinine Ratio 16 (6-20) 16 (6-20) Glucose Level 72 mg/dL (70-99) 167 mg/dL (70-99) Calcium Level 9.1 mg/dL (8.5-10.1) 7.9 mg/dL (8.5-10.1) Total Bilirubin 0.5 mg/dL (0.2-1.0) 0.5 mg/dL (0.2-1.0) Aspartate Amino Transf (AST/SGOT) 14 U/L (15-37) 12 U/L (15-37) Alanine Aminotransferase (ALT/SGPT) 23 U/L (16-63) 19 U/L (16-63) Alkaline Phosphatase 117 U/L (46-116) 100 U/L (46-116) Troponin I Quantitative 0.023 ng/mL (0.000-0.055) 0.029 ng/mL (0.000-0.055) XG-Pew-S-Type Natriuretic Peptide 1366 pg/mL (0-124) Total Protein 7.4 g/dL (6.4-8.2) 5.9 g/dL (6.4-8.2) Albumin 2.9 g/dL (3.4-5.0) 2.6 g/dL (3.4-5.0) Albumin/Globulin Ratio 0.6 (1.0-1.7) 0.8 (1.0-1.7) Glucose (Fingerstick) 160 mg/dL (70-99) 113 mg/dL (70-99) Triglycerides Level 95 mg/dL (0-150) Cholesterol Level 123 mg/dL (0-200) LDL Cholesterol, Calculated 68 mg/dL (0-100) VLDL Cholesterol, Calculated 19 mg/dL (0-40) Non-HDL Cholesterol Calculated 87 mg/dL (0-129) HDL Cholesterol 36 mg/dL (40-60) Cholesterol/HDL Ratio 3.4 Thyroid Stimulating Hormone (TSH) 2.536 uIU/mL (0.358-3.74) Test 09/29/16 08:10 09/29/16 10:26 09/29/16 11:31 Troponin I Quantitative 0.036 ng/mL (0.000-0.055) O2 Saturation 91 % (92-99) Arterial Blood pH 7.30 (7.35-7.45) Arterial Blood pCO2 at Patient Temp 73 mmHg (35-46) Arterial Blood pO2 at Patient Temp 71 mmHg (65-108) Arterial Blood HCO3 35 mmol/L (21-28) Arterial Blood Base Excess 6 mmol/L (-3-3) FiO2 26 Glucose (Fingerstick) 210 mg/dL (70-99) Review of Systems Review of Systems no fever, chills, chest pain Assessment and Plan Assessmemt and Plan Problems Medical Problems: (1) Acute exacerbation of congestive heart failure Status: Acute (2) Congestive heart failure Status: Acute (3) Essential hypertension Status: Acute (4) Hypoxia Status: Acute (5) Peripheral edema Status: Acute Problems: Comment Review of Relevant I have reviewed the following items margaret (where applicable) has been applied. Labs Laboratory Tests Test 09/28/16 17:35 09/28/16 20:44 09/29/16 03:45 09/29/16 07:21 White Blood Count 7.6 x10^3/uL (4.0-11.0) 6.5 x10^3/uL (4.0-11.0) Red Blood Count 5.35 x10^6/uL (4.30-5.70) 5.10 x10^6/uL (4.30-5.70) Hemoglobin 14.3 g/dL (13.0-17.5) 13.5 g/dL (13.0-17.5) Hematocrit 45.6 % (39.0-53.0) 43.3 % (39.0-53.0) Mean Corpuscular Volume 85 fL (79-100) 85 fL (79-100) Mean Corpuscular Hemoglobin 27 pg (25-35) 27 pg (25-35) Mean Corpuscular Hemoglobin Concent 31 g/dL (31-37) 31 g/dL (31-37) Red Cell Distribution Width 16.6 % (11.5-14.5) 16.2 % (11.5-14.5) Platelet Count 258 x10^3/uL (140-400) 222 x10^3/uL (140-400) Neutrophils (%) (Auto) 76 % (31-73) 74 % (31-73) Lymphocytes (%) (Auto) 10 % (24-48) 12 % (24-48) Monocytes (%) (Auto) 12 % (0-9) 12 % (0-9) Eosinophils (%) (Auto) 1 % (0-3) 2 % (0-3) Basophils (%) (Auto) 1 % (0-3) 0 % (0-3) Neutrophils # (Auto) 5.8 x10^3uL (1.8-7.7) 4.8 x10^3uL (1.8-7.7) Lymphocytes # (Auto) 0.8 x10^3/uL (1.0-4.8) 0.8 x10^3/uL (1.0-4.8) Monocytes # (Auto) 0.9 x10^3/uL (0.0-1.1) 0.8 x10^3/uL (0.0-1.1) Eosinophils # (Auto) 0.1 x10^3/uL (0.0-0.7) 0.1 x10^3/uL (0.0-0.7) Basophils # (Auto) 0.0 x10^3/uL (0.0-0.2) 0.0 x10^3/uL (0.0-0.2) Prothrombin Time 13.3 SEC (11.7-14.0) Prothromb Time International Ratio 1.1 (0.8-1.1) Activated Partial Thromboplast Time 38 SEC (24-38) Sodium Level 145 mmol/L (136-145) 146 mmol/L (136-145) Potassium Level 4.1 mmol/L (3.5-5.1) 4.2 mmol/L (3.5-5.1) Chloride Level 106 mmol/L (98-107) 105 mmol/L (98-107) Carbon Dioxide Level 35 mmol/L (21-32) 39 mmol/L (21-32) Anion Gap 4 (6-14) 2 (6-14) Blood Urea Nitrogen 16 mg/dL (8-26) 16 mg/dL (8-26) Creatinine 1.0 mg/dL (0.7-1.3) 1.0 mg/dL (0.7-1.3) Estimated GFR (Cockcroft-Gault) 76.5 76.5 BUN/Creatinine Ratio 16 (6-20) 16 (6-20) Glucose Level 72 mg/dL (70-99) 167 mg/dL (70-99) Calcium Level 9.1 mg/dL (8.5-10.1) 7.9 mg/dL (8.5-10.1) Total Bilirubin 0.5 mg/dL (0.2-1.0) 0.5 mg/dL (0.2-1.0) Aspartate Amino Transf (AST/SGOT) 14 U/L (15-37) 12 U/L (15-37) Alanine Aminotransferase (ALT/SGPT) 23 U/L (16-63) 19 U/L (16-63) Alkaline Phosphatase 117 U/L (46-116) 100 U/L (46-116) Troponin I Quantitative 0.023 ng/mL (0.000-0.055) 0.029 ng/mL (0.000-0.055) VQ-Vcx-J-Type Natriuretic Peptide 1366 pg/mL (0-124) Total Protein 7.4 g/dL (6.4-8.2) 5.9 g/dL (6.4-8.2) Albumin 2.9 g/dL (3.4-5.0) 2.6 g/dL (3.4-5.0) Albumin/Globulin Ratio 0.6 (1.0-1.7) 0.8 (1.0-1.7) Glucose (Fingerstick) 160 mg/dL (70-99) 113 mg/dL (70-99) Triglycerides Level 95 mg/dL (0-150) Cholesterol Level 123 mg/dL (0-200) LDL Cholesterol, Calculated 68 mg/dL (0-100) VLDL Cholesterol, Calculated 19 mg/dL (0-40) Non-HDL Cholesterol Calculated 87 mg/dL (0-129) HDL Cholesterol 36 mg/dL (40-60) Cholesterol/HDL Ratio 3.4 Thyroid Stimulating Hormone (TSH) 2.536 uIU/mL (0.358-3.74) Test 09/29/16 08:10 09/29/16 10:26 09/29/16 11:31 Troponin I Quantitative 0.036 ng/mL (0.000-0.055) O2 Saturation 91 % (92-99) Arterial Blood pH 7.30 (7.35-7.45) Arterial Blood pCO2 at Patient Temp 73 mmHg (35-46) Arterial Blood pO2 at Patient Temp 71 mmHg (65-108) Arterial Blood HCO3 35 mmol/L (21-28) Arterial Blood Base Excess 6 mmol/L (-3-3) FiO2 26 Glucose (Fingerstick) 210 mg/dL (70-99) Laboratory Tests Test 09/28/16 17:35 09/28/16 20:44 09/29/16 03:45 09/29/16 07:21 White Blood Count 7.6 x10^3/uL (4.0-11.0) 6.5 x10^3/uL (4.0-11.0) Red Blood Count 5.35 x10^6/uL (4.30-5.70) 5.10 x10^6/uL (4.30-5.70) Hemoglobin 14.3 g/dL (13.0-17.5) 13.5 g/dL (13.0-17.5) Hematocrit 45.6 % (39.0-53.0) 43.3 % (39.0-53.0) Mean Corpuscular Volume 85 fL (79-100) 85 fL (79-100) Mean Corpuscular Hemoglobin 27 pg (25-35) 27 pg (25-35) Mean Corpuscular Hemoglobin Concent 31 g/dL (31-37) 31 g/dL (31-37) Red Cell Distribution Width 16.6 % (11.5-14.5) 16.2 % (11.5-14.5) Platelet Count 258 x10^3/uL (140-400) 222 x10^3/uL (140-400) Neutrophils (%) (Auto) 76 % (31-73) 74 % (31-73) Lymphocytes (%) (Auto) 10 % (24-48) 12 % (24-48) Monocytes (%) (Auto) 12 % (0-9) 12 % (0-9) Eosinophils (%) (Auto) 1 % (0-3) 2 % (0-3) Basophils (%) (Auto) 1 % (0-3) 0 % (0-3) Neutrophils # (Auto) 5.8 x10^3uL (1.8-7.7) 4.8 x10^3uL (1.8-7.7) Lymphocytes # (Auto) 0.8 x10^3/uL (1.0-4.8) 0.8 x10^3/uL (1.0-4.8) Monocytes # (Auto) 0.9 x10^3/uL (0.0-1.1) 0.8 x10^3/uL (0.0-1.1) Eosinophils # (Auto) 0.1 x10^3/uL (0.0-0.7) 0.1 x10^3/uL (0.0-0.7) Basophils # (Auto) 0.0 x10^3/uL (0.0-0.2) 0.0 x10^3/uL (0.0-0.2) Prothrombin Time 13.3 SEC (11.7-14.0) Prothromb Time International Ratio 1.1 (0.8-1.1) Activated Partial Thromboplast Time 38 SEC (24-38) Sodium Level 145 mmol/L (136-145) 146 mmol/L (136-145) Potassium Level 4.1 mmol/L (3.5-5.1) 4.2 mmol/L (3.5-5.1) Chloride Level 106 mmol/L (98-107) 105 mmol/L (98-107) Carbon Dioxide Level 35 mmol/L (21-32) 39 mmol/L (21-32) Anion Gap 4 (6-14) 2 (6-14) Blood Urea Nitrogen 16 mg/dL (8-26) 16 mg/dL (8-26) Creatinine 1.0 mg/dL (0.7-1.3) 1.0 mg/dL (0.7-1.3) Estimated GFR (Cockcroft-Gault) 76.5 76.5 BUN/Creatinine Ratio 16 (6-20) 16 (6-20) Glucose Level 72 mg/dL (70-99) 167 mg/dL (70-99) Calcium Level 9.1 mg/dL (8.5-10.1) 7.9 mg/dL (8.5-10.1) Total Bilirubin 0.5 mg/dL (0.2-1.0) 0.5 mg/dL (0.2-1.0) Aspartate Amino Transf (AST/SGOT) 14 U/L (15-37) 12 U/L (15-37) Alanine Aminotransferase (ALT/SGPT) 23 U/L (16-63) 19 U/L (16-63) Alkaline Phosphatase 117 U/L (46-116) 100 U/L (46-116) Troponin I Quantitative 0.023 ng/mL (0.000-0.055) 0.029 ng/mL (0.000-0.055) DJ-Orj-V-Type Natriuretic Peptide 1366 pg/mL (0-124) Total Protein 7.4 g/dL (6.4-8.2) 5.9 g/dL (6.4-8.2) Albumin 2.9 g/dL (3.4-5.0) 2.6 g/dL (3.4-5.0) Albumin/Globulin Ratio 0.6 (1.0-1.7) 0.8 (1.0-1.7) Glucose (Fingerstick) 160 mg/dL (70-99) 113 mg/dL (70-99) Triglycerides Level 95 mg/dL (0-150) Cholesterol Level 123 mg/dL (0-200) LDL Cholesterol, Calculated 68 mg/dL (0-100) VLDL Cholesterol, Calculated 19 mg/dL (0-40) Non-HDL Cholesterol Calculated 87 mg/dL (0-129) HDL Cholesterol 36 mg/dL (40-60) Cholesterol/HDL Ratio 3.4 Thyroid Stimulating Hormone (TSH) 2.536 uIU/mL (0.358-3.74) Test 09/29/16 08:10 09/29/16 10:26 09/29/16 11:31 Troponin I Quantitative 0.036 ng/mL (0.000-0.055) O2 Saturation 91 % (92-99) Arterial Blood pH 7.30 (7.35-7.45) Arterial Blood pCO2 at Patient Temp 73 mmHg (35-46) Arterial Blood pO2 at Patient Temp 71 mmHg (65-108) Arterial Blood HCO3 35 mmol/L (21-28) Arterial Blood Base Excess 6 mmol/L (-3-3) FiO2 26 Glucose (Fingerstick) 210 mg/dL (70-99) Medications Current Medications Furosemide (Lasix) 40 mg 1X ONCE IVP Last administered on 09/28/16 19:01; Start 09/28/16 at 18:45; Stop 09/28/16 at 18:46; Status DC Vancomycin HCl (Vanco Per Pharmacy) 1 each PRN DAILY PRN MC SEE COMMENTS Last administered on 09/29/16 13:26; Start 09/28/16 at 18:45 Vancomycin HCl 2 gm/Sodium Chloride 500 ml @ 250 mls/hr 1X ONCE IV Last administered on 09/28/16 19:10; Start 09/28/16 at 19:00; Stop 09/28/16 at 20:59 ; Status DC Ondansetron HCl (Zofran) 4 mg PRN Q8HRS PRN IV NAUSEA/VOMITING; Start 09/28/16 at 20:15; Stop 09/29/16 at 20:14 Morphine Sulfate 2 mg PRN Q2HR PRN IV PAIN; Start 09/28/16 at 20:15; Stop 09/29 at 20:14 Acetaminophen (Tylenol) 650 mg PRN Q4HRS PRN PO FEVER; Start 09/28/16 at 20:15 ; Stop 09/29/16 at 20:14 Nitroglycerin (Nitrostat) 0.4 mg PRN Q5MIN PRN SL CHEST PAIN; Start 09/28/16 at 20:15; Stop 09/29/16 at 20:14 Aspirin (Ecotrin) 81 mg DAILY PO Last administered on 09/29/16 10:51; Start at 09:00 Carvedilol (Coreg) 6.25 mg BIDWMEALS PO Last administered on 09/29/16 10:52; Start 09/29/16 at 08:00 Chlorthalidone (Thalitone) 25 mg DAILY PO Last administered on 09/29/16 10:51 ; Start 09/29/16 at 09:00 Clopidogrel Bisulfate (Plavix) 75 mg DAILY PO Last administered on 09/29/16 10 :52; Start 09/29/16 at 09:00 Diazepam (Valium) 5 mg PRN TID PRN PO ANXIETY; Start 09/28/16 at 22:30 Diphenhydramine HCl (Benadryl) 25 mg QHS PO Last administered on 09/28/16 23: 10; Start 09/28/16 at 23:00 Famotidine (Pepcid) 20 mg BID PO Last administered on 09/29/16 10:51; Start at 23:00 Metformin HCl (Glucophage) 1,000 mg BIDWMEALS PO Last administered on 10:52; Start 09/29/16 at 08:00 Polyethylene Glycol (miraLAX PACKET) 17 gm DAILY PO Last administered on 10:50; Start 09/29/16 at 09:00 Potassium Chloride (Klor-Con) 20 meq DAILY PO Last administered on 09/29/16 10 :51; Start 09/29/16 at 09:00 Sennosides (Senna) 17.2 mg BID PO Last administered on 09/29/16 10:51; Start 09/29/16 at 09:00 Spironolactone (Aldactone) 25 mg DAILY PO Last administered on 09/29/16 10:51 ; Start 09/29/16 at 09:00 Non-Formulary Medication 1 puff PRN Q6HRS PRN INH SHORTNESS OF BREATH; Start at 22:30; Status UNV Atorvastatin Calcium (Lipitor) 80 mg QHS PO ; Start 09/29/16 at 21:00 Non-Formulary Medication 1 puff BID IH ; Start 09/29/16 at 09:00; Status UNV Insulin Detemir (Levemir) 45 units QHS SQ Last administered on 09/28/16 23:11 ; Start 09/28/16 at 23:00 Losartan Potassium (Cozaar) 100 mg DAILY PO Last administered on 09/29/16 10: 50; Start 09/29/16 at 09:00 Al Hydroxide/Mg Hydroxide (Mylanta Plus Xs) 30 ml PRN Q4HRS PRN PO HEARTBURN / GAS; Start 09/28/16 at 22:30 Oxycodone HCl (Roxicodone) 5 mg PRN Q4HRS PRN PO SEVERE PAIN; Start 09/28/16 at 22:30 Insulin Aspart (NovoLOG) 0-9 UNITS TIDWMEALS SQ Last administered on 09/29/16 13:06; Start 09/29/16 at 08:00 Dextrose (Dextrose 50%-Water Syringe) 12.5 gm PRN Q15MIN PRN IV SEE COMMENTS; Start 09/28/16 at 22:30 Furosemide (Lasix) 40 mg BID92 IVP Last administered on 09/29/16 14:12; Start 09/29/16 at 09:00 Albuterol Sulfate (Ventolin Neb Soln) 2.5 mg RTQID NEB ; Start 09/29/16 at 08:00 ; Status Cancel Albuterol Sulfate (Ventolin Neb Soln) 2.5 mg PRN Q4HRS PRN NEB SHORTNESS OF BREATH; Start 09/28/16 at 22:30 Budesonide (Pulmicort) 0.5 mg RTBID NEB Last administered on 09/29/16 11:33; Start 09/29/16 at 08:00 Albuterol/ Ipratropium (Duoneb) 3 ml RTBID NEB Last administered on 09/29/16 11:32; Start 09/29/16 at 08:00 Aspirin (Kyra Aspirin) 325 mg 1X ONCE PO Last administered on 09/28/16 23:10 ; Start 09/28/16 at 23:30; Stop 09/28/16 at 23:31; Status DC Vancomycin HCl 1.25 gm/Sodium Chloride 250 ml @ 167 mls/hr Q12H IV Last administered on 09/29/16 06:20; Start 09/29/16 at 07:00 Vancomycin HCl 1 each 1X ONCE MC ; Start 09/30/16 at 06:30; Stop 09/30/16 at 06 :31 Active Scripts Active Reported Proair Hfa Inhaler (Albuterol Sulfate) 8.5 Gm Hfa.aer.ad 1 Puff INH PRN Q6HRS PRN Advair 250-50 Diskus (Fluticasone/Salmeterol) 1 Each Disk.w.dev 1 Puff IH BID Miralax (Polyethylene Glycol 3350) 17 Gm Powd.pack 1 Packet PO DAILY Chlorthalidone 25 Mg Tablet 1 Tab PO DAILY Aspir 81 (Aspirin) 81 Mg Tablet.dr 81 Mg PO DAILY Maalox Advanced Suspension (Mag Hydrox/Aluminum Hyd/Simeth) 355 Ml Oral.susp 355 Ml PO PRN Q4HRS Aldactone (Spironolactone) 25 Mg Tablet 1 Tab PO DAILY Senokot (Sennosides) 8.6 Mg Tablet 2 Tab PO BID Klor-Con M20 (Potassium Chloride) 20 Meq Tab.er.prt 1 Tab PO DAILY Oxycodone Hcl 5 Mg Capsule 1 Cap PO PRN Q4HRS PRN Glucophage (Metformin Hcl) 500 Mg Tablet 1,000 Mg PO BIDWMEALS Cozaar (Losartan Potassium) 100 Mg Tablet 100 Mg PO DAILY Lantus Solostar (Insulin Glargine,Hum.rec.anlog) 100 Unit/1 Ml Insuln.pen 45 Unit SQ HS Pepcid (Famotidine) 20 Mg Tablet 20 Mg PO BID Benadryl (Diphenhydramine Hcl) 25 Mg Capsule 1 Cap PO QHS Valium (Diazepam) 5 Mg Tablet 5 Mg PO TID PRN Clopidogrel (Clopidogrel Bisulfate) 75 Mg Tablet 1 Tab PO DAILY Coreg (Carvedilol) 6.25 Mg Tablet 1 Tab PO BID Lipitor (Atorvastatin Calcium) 80 Mg Tablet 1 Tab PO DAILY Vitals/I & O Vital Sign - Last 24 Hours 09/28/16 09/28/16 09/28/16 09/28/16 17:30 20:30 20:30 20:30 Temp 98.4 98.2 98.2 98.4 98.2 98.2 Pulse 72 78 78 Resp 22 20 20 B/P (MAP) 195/89 (124) 175/77 (109) 175/77 (109) Pulse Ox 87 94 94 O2 Delivery Room Air Nasal Cannula Nasal Cannula Nasal Cannula O2 Flow Rate 2.0 2.0 2.0 09/28/16 09/29/16 09/29/16 09/29/16 22:50 03:25 07:15 07:40 Temp 98.5 97.5 98.3 98.5 97.5 98.3 Pulse 62 74 60 Resp 18 20 18 B/P (MAP) 157/66 (96) 150/69 (96) 148/65 (92) Pulse Ox 98 81 98 O2 Delivery Nasal Cannula Room Air Nasal Cannula Nasal Cannula O2 Flow Rate 2.0 2.0 2.0 09/29/16 09/29/16 09/29/16 09/29/16 10:50 10:50 10:52 11:00 Temp 98.3 98.3 Pulse 64 64 59 Resp 20 B/P (MAP) 148/65 148/65 115/71 (86) Pulse Ox 91 91 O2 Delivery Nasal Cannula Nasal Cannula O2 Flow Rate 1.5 2.0 09/29/16 09/29/16 11:36 11:38 Pulse Ox 90 90 O2 Flow Rate 1.5 1.5 Intake and Output 09/28/16 09/28/16 09/29/16 15:00 23:00 07:00 Intake Total 500 ml 700 ml Output Total 200 ml 1800 ml Balance 300 ml -1100 ml Nutrition Consultation Dietary Evaluation: Recommendations by RD: Dietary education by RD Comments: Provided education handout on the diet for CHF and nutrition label reading. Discussed with pt Add the diabetic diet restriction due to PmHx Expected Outcomes/Goals: meet 75% estimated nutrition needs Malnutrition Findings: Malnutrition related to morbid: No Weight Status: Obese TEDDY NEWMAN MD Sep 29, 2016 14:20
[2016-09-29] MEDS ORDERED: hydrALAZINE 20 MG/ML VIAL. IVP PRN (14:30)
[2016-09-29] MEDS ORDERED: DOCUSATE SODIUM 100 MG CAPSULE. PO PRN (14:30)
[2016-09-29] MEDS ORDERED: ONDANSETRON PF 4 MG/2 ML VIAL. IV PRN (14:30)
[2016-09-29] MEDS ORDERED: MORPHINE SULFATE 2 MG/ML DISP.SYRIN. IV PRN (14:30)
[2016-09-29] MEDS ORDERED: ACETAMINOPHEN 325 MG TABLET. PO PRN (14:30)
[2016-09-29 15:00] VITALS: BP 122/56
--- NOTE | 2016-09-29 15:38 | PDOC ---
PULMONARY PROGRESS NOTES Vitals Vital Signs Date Time Temp Pulse Resp B/P (MAP) Pulse Ox O2 Delivery O2 Flow Rate FiO2 09/29/16 15:00 98.1 62 20 122/56 (78) 91 Nasal Cannula 2.0 98.1 Lungs: Clear Labs Laboratory Tests Test 09/28/16 17:35 09/28/16 20:44 09/29/16 03:45 09/29/16 07:21 White Blood Count 7.6 x10^3/uL (4.0-11.0) 6.5 x10^3/uL (4.0-11.0) Red Blood Count 5.35 x10^6/uL (4.30-5.70) 5.10 x10^6/uL (4.30-5.70) Hemoglobin 14.3 g/dL (13.0-17.5) 13.5 g/dL (13.0-17.5) Hematocrit 45.6 % (39.0-53.0) 43.3 % (39.0-53.0) Mean Corpuscular Volume 85 fL (79-100) 85 fL (79-100) Mean Corpuscular Hemoglobin 27 pg (25-35) 27 pg (25-35) Mean Corpuscular Hemoglobin Concent 31 g/dL (31-37) 31 g/dL (31-37) Red Cell Distribution Width 16.6 % (11.5-14.5) 16.2 % (11.5-14.5) Platelet Count 258 x10^3/uL (140-400) 222 x10^3/uL (140-400) Neutrophils (%) (Auto) 76 % (31-73) 74 % (31-73) Lymphocytes (%) (Auto) 10 % (24-48) 12 % (24-48) Monocytes (%) (Auto) 12 % (0-9) 12 % (0-9) Eosinophils (%) (Auto) 1 % (0-3) 2 % (0-3) Basophils (%) (Auto) 1 % (0-3) 0 % (0-3) Neutrophils # (Auto) 5.8 x10^3uL (1.8-7.7) 4.8 x10^3uL (1.8-7.7) Lymphocytes # (Auto) 0.8 x10^3/uL (1.0-4.8) 0.8 x10^3/uL (1.0-4.8) Monocytes # (Auto) 0.9 x10^3/uL (0.0-1.1) 0.8 x10^3/uL (0.0-1.1) Eosinophils # (Auto) 0.1 x10^3/uL (0.0-0.7) 0.1 x10^3/uL (0.0-0.7) Basophils # (Auto) 0.0 x10^3/uL (0.0-0.2) 0.0 x10^3/uL (0.0-0.2) Prothrombin Time 13.3 SEC (11.7-14.0) Prothromb Time International Ratio 1.1 (0.8-1.1) Activated Partial Thromboplast Time 38 SEC (24-38) Sodium Level 145 mmol/L (136-145) 146 mmol/L (136-145) Potassium Level 4.1 mmol/L (3.5-5.1) 4.2 mmol/L (3.5-5.1) Chloride Level 106 mmol/L (98-107) 105 mmol/L (98-107) Carbon Dioxide Level 35 mmol/L (21-32) 39 mmol/L (21-32) Anion Gap 4 (6-14) 2 (6-14) Blood Urea Nitrogen 16 mg/dL (8-26) 16 mg/dL (8-26) Creatinine 1.0 mg/dL (0.7-1.3) 1.0 mg/dL (0.7-1.3) Estimated GFR (Cockcroft-Gault) 76.5 76.5 BUN/Creatinine Ratio 16 (6-20) 16 (6-20) Glucose Level 72 mg/dL (70-99) 167 mg/dL (70-99) Calcium Level 9.1 mg/dL (8.5-10.1) 7.9 mg/dL (8.5-10.1) Total Bilirubin 0.5 mg/dL (0.2-1.0) 0.5 mg/dL (0.2-1.0) Aspartate Amino Transf (AST/SGOT) 14 U/L (15-37) 12 U/L (15-37) Alanine Aminotransferase (ALT/SGPT) 23 U/L (16-63) 19 U/L (16-63) Alkaline Phosphatase 117 U/L (46-116) 100 U/L (46-116) Troponin I Quantitative 0.023 ng/mL (0.000-0.055) 0.029 ng/mL (0.000-0.055) RX-Mup-J-Type Natriuretic Peptide 1366 pg/mL (0-124) Total Protein 7.4 g/dL (6.4-8.2) 5.9 g/dL (6.4-8.2) Albumin 2.9 g/dL (3.4-5.0) 2.6 g/dL (3.4-5.0) Albumin/Globulin Ratio 0.6 (1.0-1.7) 0.8 (1.0-1.7) Glucose (Fingerstick) 160 mg/dL (70-99) 113 mg/dL (70-99) Triglycerides Level 95 mg/dL (0-150) Cholesterol Level 123 mg/dL (0-200) LDL Cholesterol, Calculated 68 mg/dL (0-100) VLDL Cholesterol, Calculated 19 mg/dL (0-40) Non-HDL Cholesterol Calculated 87 mg/dL (0-129) HDL Cholesterol 36 mg/dL (40-60) Cholesterol/HDL Ratio 3.4 Thyroid Stimulating Hormone (TSH) 2.536 uIU/mL (0.358-3.74) Test 09/29/16 08:10 09/29/16 10:26 09/29/16 11:31 Troponin I Quantitative 0.036 ng/mL (0.000-0.055) O2 Saturation 91 % (92-99) Arterial Blood pH 7.30 (7.35-7.45) Arterial Blood pCO2 at Patient Temp 73 mmHg (35-46) Arterial Blood pO2 at Patient Temp 71 mmHg (65-108) Arterial Blood HCO3 35 mmol/L (21-28) Arterial Blood Base Excess 6 mmol/L (-3-3) FiO2 26 Glucose (Fingerstick) 210 mg/dL (70-99) Laboratory Tests Test 09/28/16 17:35 09/28/16 20:44 09/29/16 03:45 09/29/16 07:21 White Blood Count 7.6 x10^3/uL (4.0-11.0) 6.5 x10^3/uL (4.0-11.0) Red Blood Count 5.35 x10^6/uL (4.30-5.70) 5.10 x10^6/uL (4.30-5.70) Hemoglobin 14.3 g/dL (13.0-17.5) 13.5 g/dL (13.0-17.5) Hematocrit 45.6 % (39.0-53.0) 43.3 % (39.0-53.0) Mean Corpuscular Volume 85 fL (79-100) 85 fL (79-100) Mean Corpuscular Hemoglobin 27 pg (25-35) 27 pg (25-35) Mean Corpuscular Hemoglobin Concent 31 g/dL (31-37) 31 g/dL (31-37) Red Cell Distribution Width 16.6 % (11.5-14.5) 16.2 % (11.5-14.5) Platelet Count 258 x10^3/uL (140-400) 222 x10^3/uL (140-400) Neutrophils (%) (Auto) 76 % (31-73) 74 % (31-73) Lymphocytes (%) (Auto) 10 % (24-48) 12 % (24-48) Monocytes (%) (Auto) 12 % (0-9) 12 % (0-9) Eosinophils (%) (Auto) 1 % (0-3) 2 % (0-3) Basophils (%) (Auto) 1 % (0-3) 0 % (0-3) Neutrophils # (Auto) 5.8 x10^3uL (1.8-7.7) 4.8 x10^3uL (1.8-7.7) Lymphocytes # (Auto) 0.8 x10^3/uL (1.0-4.8) 0.8 x10^3/uL (1.0-4.8) Monocytes # (Auto) 0.9 x10^3/uL (0.0-1.1) 0.8 x10^3/uL (0.0-1.1) Eosinophils # (Auto) 0.1 x10^3/uL (0.0-0.7) 0.1 x10^3/uL (0.0-0.7) Basophils # (Auto) 0.0 x10^3/uL (0.0-0.2) 0.0 x10^3/uL (0.0-0.2) Prothrombin Time 13.3 SEC (11.7-14.0) Prothromb Time International Ratio 1.1 (0.8-1.1) Activated Partial Thromboplast Time 38 SEC (24-38) Sodium Level 145 mmol/L (136-145) 146 mmol/L (136-145) Potassium Level 4.1 mmol/L (3.5-5.1) 4.2 mmol/L (3.5-5.1) Chloride Level 106 mmol/L (98-107) 105 mmol/L (98-107) Carbon Dioxide Level 35 mmol/L (21-32) 39 mmol/L (21-32) Anion Gap 4 (6-14) 2 (6-14) Blood Urea Nitrogen 16 mg/dL (8-26) 16 mg/dL (8-26) Creatinine 1.0 mg/dL (0.7-1.3) 1.0 mg/dL (0.7-1.3) Estimated GFR (Cockcroft-Gault) 76.5 76.5 BUN/Creatinine Ratio 16 (6-20) 16 (6-20) Glucose Level 72 mg/dL (70-99) 167 mg/dL (70-99) Calcium Level 9.1 mg/dL (8.5-10.1) 7.9 mg/dL (8.5-10.1) Total Bilirubin 0.5 mg/dL (0.2-1.0) 0.5 mg/dL (0.2-1.0) Aspartate Amino Transf (AST/SGOT) 14 U/L (15-37) 12 U/L (15-37) Alanine Aminotransferase (ALT/SGPT) 23 U/L (16-63) 19 U/L (16-63) Alkaline Phosphatase 117 U/L (46-116) 100 U/L (46-116) Troponin I Quantitative 0.023 ng/mL (0.000-0.055) 0.029 ng/mL (0.000-0.055) LO-Cjx-A-Type Natriuretic Peptide 1366 pg/mL (0-124) Total Protein 7.4 g/dL (6.4-8.2) 5.9 g/dL (6.4-8.2) Albumin 2.9 g/dL (3.4-5.0) 2.6 g/dL (3.4-5.0) Albumin/Globulin Ratio 0.6 (1.0-1.7) 0.8 (1.0-1.7) Glucose (Fingerstick) 160 mg/dL (70-99) 113 mg/dL (70-99) Triglycerides Level 95 mg/dL (0-150) Cholesterol Level 123 mg/dL (0-200) LDL Cholesterol, Calculated 68 mg/dL (0-100) VLDL Cholesterol, Calculated 19 mg/dL (0-40) Non-HDL Cholesterol Calculated 87 mg/dL (0-129) HDL Cholesterol 36 mg/dL (40-60) Cholesterol/HDL Ratio 3.4 Thyroid Stimulating Hormone (TSH) 2.536 uIU/mL (0.358-3.74) Test 09/29/16 08:10 09/29/16 10:26 09/29/16 11:31 Troponin I Quantitative 0.036 ng/mL (0.000-0.055) O2 Saturation 91 % (92-99) Arterial Blood pH 7.30 (7.35-7.45) Arterial Blood pCO2 at Patient Temp 73 mmHg (35-46) Arterial Blood pO2 at Patient Temp 71 mmHg (65-108) Arterial Blood HCO3 35 mmol/L (21-28) Arterial Blood Base Excess 6 mmol/L (-3-3) FiO2 26 Glucose (Fingerstick) 210 mg/dL (70-99) Medications Active Scripts Medications Dose Route/Sig Max Daily Dose Days Date Category Proair Hfa Inhaler (Albuterol Sulfate) 8.5 Gm Hfa.aer.ad 1 Puff INH PRN Q6HRS PRN 09/28/16 Reported Advair 250-50 Diskus (Fluticasone/Salmeterol) 1 Each Disk.w.dev 1 Puff IH BID 09/28/16 Reported Miralax (Polyethylene Glycol 3350) 17 Gm Powd.pack 1 Packet PO DAILY 09/28/16 Reported Chlorthalidone 25 Mg Tablet 1 Tab PO DAILY 09/28/16 Reported Aspir 81 (Aspirin) 81 Mg Tablet.dr 81 Mg PO DAILY 09/28/16 Reported Maalox Advanced Suspension (Mag Hydrox/Aluminum Hyd/Simeth) 355 Ml Oral.susp 355 Ml PO PRN Q4HRS 09/28/16 Reported Aldactone (Spironolactone) 25 Mg Tablet 1 Tab PO DAILY 09/28/16 Reported Senokot (Sennosides) 8.6 Mg Tablet 2 Tab PO BID 09/28/16 Reported Klor-Con M20 (Potassium Chloride) 20 Meq Tab.er.prt 1 Tab PO DAILY 09/28/16 Reported Oxycodone Hcl 5 Mg Capsule 1 Cap PO PRN Q4HRS PRN 09/28/16 Reported Glucophage (Metformin Hcl) 500 Mg Tablet 1,000 Mg PO BIDWMEALS 09/28/16 Reported Cozaar (Losartan Potassium) 100 Mg Tablet 100 Mg PO DAILY 09/28/16 Reported Lantus Solostar (Insulin Glargine,Hum.rec.anlog) 100 Unit/1 Ml Insuln.pen 45 Unit SQ HS 09/28/16 Reported Pepcid (Famotidine) 20 Mg Tablet 20 Mg PO BID 09/28/16 Reported Benadryl (Diphenhydramine Hcl) 25 Mg Capsule 1 Cap PO QHS 09/28/16 Reported Valium (Diazepam) 5 Mg Tablet 5 Mg PO TID PRN 09/28/16 Reported Clopidogrel (Clopidogrel Bisulfate) 75 Mg Tablet 1 Tab PO DAILY 09/28/16 Reported Coreg (Carvedilol) 6.25 Mg Tablet 1 Tab PO BID 09/28/16 Reported Lipitor (Atorvastatin Calcium) 80 Mg Tablet 1 Tab PO DAILY 09/28/16 Reported Impression . FULL CONSULT DICTATED A/C CHF A/C HYPERCAPNIA WILL NEED A REPEAT SLEEP STUDY WITH NEVIN CHAPA MD Sep 29, 2016 15:38
[2016-09-29 19:25] VITALS: BP 141/62
[2016-09-29] MEDS: ATORVASTATIN CALCIUM 40 MG TABLET. PO SCH (21:03)
[2016-09-29] MEDS: diphenhydrAMINE HCL 25 MG CAPSULE PO SCH (21:03)
[2016-09-29] MEDS: traMADol 50 MG TABLET PO PRN (21:04)
[2016-09-29] MEDS: INSULIN DETEMIR 300 UNITS/3 ML INSULN.PEN. SQ SCH (21:10)
[2016-09-29 22:40] VITALS: BP 144/60
[2016-09-30 03:05] VITALS: BP 147/58
[2016-09-30 04:17] LABS: BASO % 0 % (0-3); EOS % 2 % (0-3); HEMATOCRIT 40.8 % (39.0-53.0); HEMOGLOBIN 13.2 g/dL (13.0-17.5); LYMPH # 1.1 x10^3/uL (1.0-4.8); LYMPH % 17 % (24-48); MEAN CORPUSCULAR HEMOGLOBIN 27 pg (25-35); MEAN CORPUSCULAR HGB CONC 32 g/dL (31-37); MEAN CORPUSCULAR VOLUME 84 fL (79-100); MONO % 10 % (0-9); NEUT % 71 % (31-73); PLATELET COUNT 224 x10^3/uL (140-400); RED BLOOD COUNT 4.88 x10^6/uL (4.30-5.70); RED CELL DISTRIBUTION WIDTH 16.1 % (11.5-14.5); WHITE BLOOD COUNT 6.9 x10^3/uL (4.0-11.0)
[2016-09-30 04:44] LABS: CALCIUM 7.9 mg/dL (8.5-10.1); GFR 76.5; POTASSIUM 3.8 mmol/L (3.5-5.1)
--- NOTE | 2016-09-30 06:45 | CONS ---
DATE OF CONSULTATION: 09/29/2016 ATTENDING PHYSICIAN: Dr. Estefani Hamilton. REASON FOR CONSULTATION: The patient is seen in pulmonary consultation at the request of Dr. Vegas for abnormal arterial blood gas revealing a pH of 7.30, PaCO2 of 73, pO2 of 71. HISTORY OF PRESENT ILLNESS: The patient is a 61-year-old, presented with lower extremity edema 3 days, worsening lower extremity edema, some mild shortness of breath, cough, mostly nonproductive. The patient does not wear oxygen at home. He has never smoked. He has had a previous sleep study, but is noncompliant with his CPAP unit. He states that it suffocates him and makes him gag. He denies fever, chills or night sweats. He does not use any metered dose inhalers at home. PAST MEDICAL HISTORY: Coronary artery disease, chronic heart failure, hypertension, TIA, and lower back pain. PAST SURGICAL HISTORY: No recent major surgeries. SOCIAL HISTORY: Denies any alcohol or tobacco. ALLERGIES: LISINOPRIL. MEDICATIONS: List was reviewed. Please see the MRAD. REVIEW OF SYSTEMS: As indicated above, otherwise, a 10-point system was reviewed and negative. FAMILY HISTORY: No family history of lung disorders. PHYSICAL EXAMINATION: GENERAL: The patient is currently on 1.5 liters of oxygen supplementation. He was in no significant respiratory distress, awake, alert, following commands. HEENT: Eyes, the sclerae were nonicteric. NECK: Jugular venous distention could not be assessed secondary to body habitus. CHEST: Full expansion. LUNGS: Adequate airway flow with no wheezes. CARDIOVASCULAR: Regular rate and rhythm with S1, S2, no S3. ABDOMEN: Soft, obese. EXTREMITIES: No clubbing, cyanosis, some edema. NEUROLOGIC: The patient was awake, alert, following commands. A detailed neuro exam was not performed. DIAGNOSTIC STUDIES: Chest x-ray was reviewed. There are bilateral pulmonary infiltrates compatible with CHF. Arterial blood gas as indicated above. White count was normal. Hemoglobin and hematocrit were normal. Electrolytes were noted. BUN and creatinine were normal. Albumin was low. IMPRESSION: 1. Rzlnz-eb-uvnpedm hypercapnic hypoxemic respiratory failure, suspect diastolic heart failure. 2. Acute cor pulmonale. 3. Secondary pulmonary hypertension secondary to untreated obstructive sleep apnea. 4. Coronary artery disease. 5. Transient ischemic attack. 6. Metabolic encephalopathy. PLAN: 1. Recommend continue diuresis. 2. Avoid increasing oxygen supplementation. 3. The patient failed outpatient treatment with CPAP. He requires BiPAP, will probably need to repeat sleep study with BiPAP titration. 4. Follow cardiology input. I do appreciate the privilege in sharing the patient's care. NEVIN ARCHER MD DR: MITCHELL/bryon JOB#: [id number] / [id number]
[2016-09-30 07:15] VITALS: BP 146/56
[2016-09-30] MEDS: VANCOMYCIN 1.25 GM in IV NORMAL SALINE 250ML 250 ML IV SCH ×2 (07:17→18:34)
[2016-09-30] MEDS: VANCOMYCIN PER PHARMACY MC PRN (07:26)
[2016-09-30] MEDS: INSULIN ASPART 300 UNITS/3 ML INSULN.PEN SQ SCH ×3 (08:00→17:00)
[2016-09-30] MEDS: BUDESONIDE 0.5 MG/2 ML NEBU. NEB SCH ×2 (08:03→17:42)
[2016-09-30] MEDS: IPRATRPIUM/ALBUTEROL 0.5/2.5MG 3 ML NEBU. NEB SCH ×2 (08:03→11:25)
[2016-09-30] MEDS: metFORMIN 500 MG TABLET PO SCH ×2 (08:51→17:33)
[2016-09-30] MEDS: FUROSEMIDE 40 MG/4 ML VIAL. IVP SCH ×2 (08:51→14:07)
[2016-09-30] MEDS: FAMOTIDINE 20 MG TABLET. PO SCH ×2 (08:52→20:57)
[2016-09-30] MEDS: CHLORTHALIDONE 25 MG TABLET. PO SCH (08:52)
[2016-09-30] MEDS: ASPIRIN ENTERIC COATED 81 MG TABLET.DR. PO SCH (08:52)
[2016-09-30] MEDS: CARVEDILOL 6.25 MG TABLET. PO SCH ×2 (08:52→17:34)
[2016-09-30] MEDS: CLOPIDOGREL BISULFATE 75 MG TABLET PO SCH (08:52)
[2016-09-30] MEDS: LOSARTAN POTASSIUM 50 MG TABLET. PO SCH (08:55)
[2016-09-30] MEDS: SPIRONOLACTONE 25 MG TABLET PO SCH (08:55)
[2016-09-30] MEDS: SENNOSIDES 8.6 MG TABLET PO SCH ×2 (09:00→20:57)
[2016-09-30] MEDS: POTASSIUM CHLORIDE 20 MEQ TABLET.ER. PO SCH (09:00)
[2016-09-30] MEDS: POLYETHYLENE GLYCOL 3350 17 GM PACKET. PO SCH (09:00)
[2016-09-30 11:00] VITALS: BP 108/44
--- NOTE | 2016-09-30 12:07 | PDOC ---
PULMONARY PROGRESS NOTES Subjective LESS SOA Vitals Vital Signs Date Time Temp Pulse Resp B/P (MAP) Pulse Ox O2 Delivery O2 Flow Rate FiO2 09/30/16 11:26 Nasal Cannula 1.5 09/30/16 11:00 98.3 57 18 108/44 (65) 91 98.3 ROS: No Nausea, No Chest Pain, No Abdominal Pain, No Increase Cough Lungs: Crackles Cardiovascular: S1, S2 Abdomen: Soft Neuro Exam: Alert Extremities: No Edema Skin: Warm Labs Laboratory Tests Test 09/28/16 17:35 09/28/16 20:44 09/29/16 03:45 09/29/16 07:21 White Blood Count 7.6 x10^3/uL (4.0-11.0) 6.5 x10^3/uL (4.0-11.0) Red Blood Count 5.35 x10^6/uL (4.30-5.70) 5.10 x10^6/uL (4.30-5.70) Hemoglobin 14.3 g/dL (13.0-17.5) 13.5 g/dL (13.0-17.5) Hematocrit 45.6 % (39.0-53.0) 43.3 % (39.0-53.0) Mean Corpuscular Volume 85 fL (79-100) 85 fL (79-100) Mean Corpuscular Hemoglobin 27 pg (25-35) 27 pg (25-35) Mean Corpuscular Hemoglobin Concent 31 g/dL (31-37) 31 g/dL (31-37) Red Cell Distribution Width 16.6 % (11.5-14.5) 16.2 % (11.5-14.5) Platelet Count 258 x10^3/uL (140-400) 222 x10^3/uL (140-400) Neutrophils (%) (Auto) 76 % (31-73) 74 % (31-73) Lymphocytes (%) (Auto) 10 % (24-48) 12 % (24-48) Monocytes (%) (Auto) 12 % (0-9) 12 % (0-9) Eosinophils (%) (Auto) 1 % (0-3) 2 % (0-3) Basophils (%) (Auto) 1 % (0-3) 0 % (0-3) Neutrophils # (Auto) 5.8 x10^3uL (1.8-7.7) 4.8 x10^3uL (1.8-7.7) Lymphocytes # (Auto) 0.8 x10^3/uL (1.0-4.8) 0.8 x10^3/uL (1.0-4.8) Monocytes # (Auto) 0.9 x10^3/uL (0.0-1.1) 0.8 x10^3/uL (0.0-1.1) Eosinophils # (Auto) 0.1 x10^3/uL (0.0-0.7) 0.1 x10^3/uL (0.0-0.7) Basophils # (Auto) 0.0 x10^3/uL (0.0-0.2) 0.0 x10^3/uL (0.0-0.2) Prothrombin Time 13.3 SEC (11.7-14.0) Prothromb Time International Ratio 1.1 (0.8-1.1) Activated Partial Thromboplast Time 38 SEC (24-38) Sodium Level 145 mmol/L (136-145) 146 mmol/L (136-145) Potassium Level 4.1 mmol/L (3.5-5.1) 4.2 mmol/L (3.5-5.1) Chloride Level 106 mmol/L (98-107) 105 mmol/L (98-107) Carbon Dioxide Level 35 mmol/L (21-32) 39 mmol/L (21-32) Anion Gap 4 (6-14) 2 (6-14) Blood Urea Nitrogen 16 mg/dL (8-26) 16 mg/dL (8-26) Creatinine 1.0 mg/dL (0.7-1.3) 1.0 mg/dL (0.7-1.3) Estimated GFR (Cockcroft-Gault) 76.5 76.5 BUN/Creatinine Ratio 16 (6-20) 16 (6-20) Glucose Level 72 mg/dL (70-99) 167 mg/dL (70-99) Calcium Level 9.1 mg/dL (8.5-10.1) 7.9 mg/dL (8.5-10.1) Total Bilirubin 0.5 mg/dL (0.2-1.0) 0.5 mg/dL (0.2-1.0) Aspartate Amino Transf (AST/SGOT) 14 U/L (15-37) 12 U/L (15-37) Alanine Aminotransferase (ALT/SGPT) 23 U/L (16-63) 19 U/L (16-63) Alkaline Phosphatase 117 U/L (46-116) 100 U/L (46-116) Troponin I Quantitative 0.023 ng/mL (0.000-0.055) 0.029 ng/mL (0.000-0.055) JT-Svm-G-Type Natriuretic Peptide 1366 pg/mL (0-124) Total Protein 7.4 g/dL (6.4-8.2) 5.9 g/dL (6.4-8.2) Albumin 2.9 g/dL (3.4-5.0) 2.6 g/dL (3.4-5.0) Albumin/Globulin Ratio 0.6 (1.0-1.7) 0.8 (1.0-1.7) Glucose (Fingerstick) 160 mg/dL (70-99) 113 mg/dL (70-99) Hemoglobin A1c 7.0 % (4.8-5.6) Triglycerides Level 95 mg/dL (0-150) Cholesterol Level 123 mg/dL (0-200) LDL Cholesterol, Calculated 68 mg/dL (0-100) VLDL Cholesterol, Calculated 19 mg/dL (0-40) Non-HDL Cholesterol Calculated 87 mg/dL (0-129) HDL Cholesterol 36 mg/dL (40-60) Cholesterol/HDL Ratio 3.4 Thyroid Stimulating Hormone (TSH) 2.536 uIU/mL (0.358-3.74) Test 09/29/16 08:10 09/29/16 10:26 09/29/16 11:31 09/29/16 16:29 Troponin I Quantitative 0.036 ng/mL (0.000-0.055) O2 Saturation 91 % (92-99) Arterial Blood pH 7.30 (7.35-7.45) Arterial Blood pCO2 at Patient Temp 73 mmHg (35-46) Arterial Blood pO2 at Patient Temp 71 mmHg (65-108) Arterial Blood HCO3 35 mmol/L (21-28) Arterial Blood Base Excess 6 mmol/L (-3-3) FiO2 26 Glucose (Fingerstick) 210 mg/dL (70-99) 126 mg/dL (70-99) Test 09/29/16 21:02 09/30/16 03:27 09/30/16 06:25 09/30/16 07:25 Glucose (Fingerstick) 139 mg/dL (70-99) 80 mg/dL (70-99) White Blood Count 6.9 x10^3/uL (4.0-11.0) Red Blood Count 4.88 x10^6/uL (4.30-5.70) Hemoglobin 13.2 g/dL (13.0-17.5) Hematocrit 40.8 % (39.0-53.0) Mean Corpuscular Volume 84 fL (79-100) Mean Corpuscular Hemoglobin 27 pg (25-35) Mean Corpuscular Hemoglobin Concent 32 g/dL (31-37) Red Cell Distribution Width 16.1 % (11.5-14.5) Platelet Count 224 x10^3/uL (140-400) Neutrophils (%) (Auto) 71 % (31-73) Lymphocytes (%) (Auto) 17 % (24-48) Monocytes (%) (Auto) 10 % (0-9) Eosinophils (%) (Auto) 2 % (0-3) Basophils (%) (Auto) 0 % (0-3) Neutrophils # (Auto) 4.9 x10^3uL (1.8-7.7) Lymphocytes # (Auto) 1.1 x10^3/uL (1.0-4.8) Monocytes # (Auto) 0.7 x10^3/uL (0.0-1.1) Eosinophils # (Auto) 0.2 x10^3/uL (0.0-0.7) Basophils # (Auto) 0.0 x10^3/uL (0.0-0.2) Sodium Level 141 mmol/L (136-145) Potassium Level 3.8 mmol/L (3.5-5.1) Chloride Level 101 mmol/L (98-107) Carbon Dioxide Level 38 mmol/L (21-32) Anion Gap 2 (6-14) Blood Urea Nitrogen 19 mg/dL (8-26) Creatinine 1.0 mg/dL (0.7-1.3) Estimated GFR (Cockcroft-Gault) 76.5 Glucose Level 124 mg/dL (70-99) Calcium Level 7.9 mg/dL (8.5-10.1) Vancomycin Level Trough 15.0 mcg/mL (10.0-20.0) Vancomycin Last Dose Date 09/29/16 Vancomycin Last Dose Time 1900 Test 09/30/16 11:32 Glucose (Fingerstick) 165 mg/dL (70-99) Laboratory Tests Test 09/29/16 16:29 09/29/16 21:02 09/30/16 03:27 09/30/16 06:25 Glucose (Fingerstick) 126 mg/dL (70-99) 139 mg/dL (70-99) White Blood Count 6.9 x10^3/uL (4.0-11.0) Red Blood Count 4.88 x10^6/uL (4.30-5.70) Hemoglobin 13.2 g/dL (13.0-17.5) Hematocrit 40.8 % (39.0-53.0) Mean Corpuscular Volume 84 fL (79-100) Mean Corpuscular Hemoglobin 27 pg (25-35) Mean Corpuscular Hemoglobin Concent 32 g/dL (31-37) Red Cell Distribution Width 16.1 % (11.5-14.5) Platelet Count 224 x10^3/uL (140-400) Neutrophils (%) (Auto) 71 % (31-73) Lymphocytes (%) (Auto) 17 % (24-48) Monocytes (%) (Auto) 10 % (0-9) Eosinophils (%) (Auto) 2 % (0-3) Basophils (%) (Auto) 0 % (0-3) Neutrophils # (Auto) 4.9 x10^3uL (1.8-7.7) Lymphocytes # (Auto) 1.1 x10^3/uL (1.0-4.8) Monocytes # (Auto) 0.7 x10^3/uL (0.0-1.1) Eosinophils # (Auto) 0.2 x10^3/uL (0.0-0.7) Basophils # (Auto) 0.0 x10^3/uL (0.0-0.2) Sodium Level 141 mmol/L (136-145) Potassium Level 3.8 mmol/L (3.5-5.1) Chloride Level 101 mmol/L (98-107) Carbon Dioxide Level 38 mmol/L (21-32) Anion Gap 2 (6-14) Blood Urea Nitrogen 19 mg/dL (8-26) Creatinine 1.0 mg/dL (0.7-1.3) Estimated GFR (Cockcroft-Gault) 76.5 Glucose Level 124 mg/dL (70-99) Calcium Level 7.9 mg/dL (8.5-10.1) Vancomycin Level Trough 15.0 mcg/mL (10.0-20.0) Vancomycin Last Dose Date 09/29/16 Vancomycin Last Dose Time 1900 Test 09/30/16 07:25 09/30/16 11:32 Glucose (Fingerstick) 80 mg/dL (70-99) 165 mg/dL (70-99) Medications Active Scripts Medications Dose Route/Sig Max Daily Dose Days Date Category Proair Hfa Inhaler (Albuterol Sulfate) 8.5 Gm Hfa.aer.ad 1 Puff INH PRN Q6HRS PRN 09/28/16 Reported Advair 250-50 Diskus (Fluticasone/Salmeterol) 1 Each Disk.w.dev 1 Puff IH BID 09/28/16 Reported Miralax (Polyethylene Glycol 3350) 17 Gm Powd.pack 1 Packet PO DAILY 09/28/16 Reported Chlorthalidone 25 Mg Tablet 1 Tab PO DAILY 09/28/16 Reported Aspir 81 (Aspirin) 81 Mg Tablet.dr 81 Mg PO DAILY 09/28/16 Reported Maalox Advanced Suspension (Mag Hydrox/Aluminum Hyd/Simeth) 355 Ml Oral.susp 355 Ml PO PRN Q4HRS 09/28/16 Reported Aldactone (Spironolactone) 25 Mg Tablet 1 Tab PO DAILY 09/28/16 Reported Senokot (Sennosides) 8.6 Mg Tablet 2 Tab PO BID 09/28/16 Reported Klor-Con M20 (Potassium Chloride) 20 Meq Tab.er.prt 1 Tab PO DAILY 09/28/16 Reported Oxycodone Hcl 5 Mg Capsule 1 Cap PO PRN Q4HRS PRN 09/28/16 Reported Glucophage (Metformin Hcl) 500 Mg Tablet 1,000 Mg PO BIDWMEALS 09/28/16 Reported Cozaar (Losartan Potassium) 100 Mg Tablet 100 Mg PO DAILY 09/28/16 Reported Lantus Solostar (Insulin Glargine,Hum.rec.anlog) 100 Unit/1 Ml Insuln.pen 45 Unit SQ HS 09/28/16 Reported Pepcid (Famotidine) 20 Mg Tablet 20 Mg PO BID 09/28/16 Reported Benadryl (Diphenhydramine Hcl) 25 Mg Capsule 1 Cap PO QHS 09/28/16 Reported Valium (Diazepam) 5 Mg Tablet 5 Mg PO TID PRN 09/28/16 Reported Clopidogrel (Clopidogrel Bisulfate) 75 Mg Tablet 1 Tab PO DAILY 09/28/16 Reported Coreg (Carvedilol) 6.25 Mg Tablet 1 Tab PO BID 09/28/16 Reported Lipitor (Atorvastatin Calcium) 80 Mg Tablet 1 Tab PO DAILY 09/28/16 Reported Impression . IMPRESSION: 1. Whial-je-krmdfjj hypercapnic hypoxemic respiratory failure, suspect diastolic heart failure. 2. Acute cor pulmonale. 3. Secondary pulmonary hypertension secondary to untreated obstructive sleep apnea. 4. Coronary artery disease. 5. Transient ischemic attack. 6. Metabolic encephalopathy. . Plan . WILL INITIATE BIPAP QHS PT FEEL A LITTLE BETTER 1. Recommend continue diuresis. 2. Avoid increasing oxygen supplementation. 3. The patient failed outpatient treatment with CPAP. He requires BiPAP, will probably need to repeat sleep study with BiPAP titration. 4. Follow cardiology input. NEVIN ARCHER MD Sep 30, 2016 12:07
--- NOTE | 2016-09-30 12:55 | PDOC ---
PROGRESS NOTES Chief Complaint Chief Complaint acute hypoxic respiratory failure with diastolic CHF exacerbation, acute, and PHTN PHTN DM2 anxiety moderate malnutrition obesity, BMI 36 bl leg multiple folliculitis with mild cellulitis h/o CAD 05/2016 plan; fu with card, echo done lasix 40mg iv bid ptot dvt ppx decrease levemir to 40u qhs, ssi, check hba1c vanco for now, able to change to po soon nc as needed watch in and out History of Present Illness History of Present Illness BL LEG mild erythema with multiple folliculitis, cellulitis, better. bl leg edema 2+, tight legs on NC 2L, NEW TO Him Vitals Vitals Vital Signs Date Time Temp Pulse Resp B/P (MAP) Pulse Ox O2 Delivery O2 Flow Rate FiO2 09/30/16 11:26 Nasal Cannula 1.5 09/30/16 11:00 98.3 57 18 108/44 (65) 91 98.3 Physical Exam General: Oriented X3, Cooperative, mild distress Heart: Regular rate (SR), Normal S1, Normal S2, Other (2/6 systolic murmur to LLS border ) Lungs: Clear Abdomen: Soft, No tenderness Extremities: No cyanosis, Other (2+ bilateral LE pitting edema) Skin: Other (erthema with mult small dark red lesions with fluid) Labs LABS Laboratory Tests Test 09/29/16 16:29 09/29/16 21:02 09/30/16 03:27 09/30/16 06:25 Glucose (Fingerstick) 126 mg/dL (70-99) 139 mg/dL (70-99) White Blood Count 6.9 x10^3/uL (4.0-11.0) Red Blood Count 4.88 x10^6/uL (4.30-5.70) Hemoglobin 13.2 g/dL (13.0-17.5) Hematocrit 40.8 % (39.0-53.0) Mean Corpuscular Volume 84 fL (79-100) Mean Corpuscular Hemoglobin 27 pg (25-35) Mean Corpuscular Hemoglobin Concent 32 g/dL (31-37) Red Cell Distribution Width 16.1 % (11.5-14.5) Platelet Count 224 x10^3/uL (140-400) Neutrophils (%) (Auto) 71 % (31-73) Lymphocytes (%) (Auto) 17 % (24-48) Monocytes (%) (Auto) 10 % (0-9) Eosinophils (%) (Auto) 2 % (0-3) Basophils (%) (Auto) 0 % (0-3) Neutrophils # (Auto) 4.9 x10^3uL (1.8-7.7) Lymphocytes # (Auto) 1.1 x10^3/uL (1.0-4.8) Monocytes # (Auto) 0.7 x10^3/uL (0.0-1.1) Eosinophils # (Auto) 0.2 x10^3/uL (0.0-0.7) Basophils # (Auto) 0.0 x10^3/uL (0.0-0.2) Sodium Level 141 mmol/L (136-145) Potassium Level 3.8 mmol/L (3.5-5.1) Chloride Level 101 mmol/L (98-107) Carbon Dioxide Level 38 mmol/L (21-32) Anion Gap 2 (6-14) Blood Urea Nitrogen 19 mg/dL (8-26) Creatinine 1.0 mg/dL (0.7-1.3) Estimated GFR (Cockcroft-Gault) 76.5 Glucose Level 124 mg/dL (70-99) Calcium Level 7.9 mg/dL (8.5-10.1) Vancomycin Level Trough 15.0 mcg/mL (10.0-20.0) Vancomycin Last Dose Date 09/29/16 Vancomycin Last Dose Time 1900 Test 09/30/16 07:25 09/30/16 11:32 Glucose (Fingerstick) 80 mg/dL (70-99) 165 mg/dL (70-99) Review of Systems Review of Systems no fever, chills, chest pain Assessment and Plan Assessmemt and Plan Problems Medical Problems: (1) Acute exacerbation of congestive heart failure Status: Acute (2) Congestive heart failure Status: Acute (3) Essential hypertension Status: Acute (4) Hypoxia Status: Acute (5) Peripheral edema Status: Acute Problems: Comment Review of Relevant I have reviewed the following items margaret (where applicable) has been applied. Labs Laboratory Tests Test 09/28/16 17:35 09/28/16 20:44 09/29/16 03:45 09/29/16 07:21 White Blood Count 7.6 x10^3/uL (4.0-11.0) 6.5 x10^3/uL (4.0-11.0) Red Blood Count 5.35 x10^6/uL (4.30-5.70) 5.10 x10^6/uL (4.30-5.70) Hemoglobin 14.3 g/dL (13.0-17.5) 13.5 g/dL (13.0-17.5) Hematocrit 45.6 % (39.0-53.0) 43.3 % (39.0-53.0) Mean Corpuscular Volume 85 fL (79-100) 85 fL (79-100) Mean Corpuscular Hemoglobin 27 pg (25-35) 27 pg (25-35) Mean Corpuscular Hemoglobin Concent 31 g/dL (31-37) 31 g/dL (31-37) Red Cell Distribution Width 16.6 % (11.5-14.5) 16.2 % (11.5-14.5) Platelet Count 258 x10^3/uL (140-400) 222 x10^3/uL (140-400) Neutrophils (%) (Auto) 76 % (31-73) 74 % (31-73) Lymphocytes (%) (Auto) 10 % (24-48) 12 % (24-48) Monocytes (%) (Auto) 12 % (0-9) 12 % (0-9) Eosinophils (%) (Auto) 1 % (0-3) 2 % (0-3) Basophils (%) (Auto) 1 % (0-3) 0 % (0-3) Neutrophils # (Auto) 5.8 x10^3uL (1.8-7.7) 4.8 x10^3uL (1.8-7.7) Lymphocytes # (Auto) 0.8 x10^3/uL (1.0-4.8) 0.8 x10^3/uL (1.0-4.8) Monocytes # (Auto) 0.9 x10^3/uL (0.0-1.1) 0.8 x10^3/uL (0.0-1.1) Eosinophils # (Auto) 0.1 x10^3/uL (0.0-0.7) 0.1 x10^3/uL (0.0-0.7) Basophils # (Auto) 0.0 x10^3/uL (0.0-0.2) 0.0 x10^3/uL (0.0-0.2) Prothrombin Time 13.3 SEC (11.7-14.0) Prothromb Time International Ratio 1.1 (0.8-1.1) Activated Partial Thromboplast Time 38 SEC (24-38) Sodium Level 145 mmol/L (136-145) 146 mmol/L (136-145) Potassium Level 4.1 mmol/L (3.5-5.1) 4.2 mmol/L (3.5-5.1) Chloride Level 106 mmol/L (98-107) 105 mmol/L (98-107) Carbon Dioxide Level 35 mmol/L (21-32) 39 mmol/L (21-32) Anion Gap 4 (6-14) 2 (6-14) Blood Urea Nitrogen 16 mg/dL (8-26) 16 mg/dL (8-26) Creatinine 1.0 mg/dL (0.7-1.3) 1.0 mg/dL (0.7-1.3) Estimated GFR (Cockcroft-Gault) 76.5 76.5 BUN/Creatinine Ratio 16 (6-20) 16 (6-20) Glucose Level 72 mg/dL (70-99) 167 mg/dL (70-99) Calcium Level 9.1 mg/dL (8.5-10.1) 7.9 mg/dL (8.5-10.1) Total Bilirubin 0.5 mg/dL (0.2-1.0) 0.5 mg/dL (0.2-1.0) Aspartate Amino Transf (AST/SGOT) 14 U/L (15-37) 12 U/L (15-37) Alanine Aminotransferase (ALT/SGPT) 23 U/L (16-63) 19 U/L (16-63) Alkaline Phosphatase 117 U/L (46-116) 100 U/L (46-116) Troponin I Quantitative 0.023 ng/mL (0.000-0.055) 0.029 ng/mL (0.000-0.055) VV-Dyi-Z-Type Natriuretic Peptide 1366 pg/mL (0-124) Total Protein 7.4 g/dL (6.4-8.2) 5.9 g/dL (6.4-8.2) Albumin 2.9 g/dL (3.4-5.0) 2.6 g/dL (3.4-5.0) Albumin/Globulin Ratio 0.6 (1.0-1.7) 0.8 (1.0-1.7) Glucose (Fingerstick) 160 mg/dL (70-99) 113 mg/dL (70-99) Hemoglobin A1c 7.0 % (4.8-5.6) Triglycerides Level 95 mg/dL (0-150) Cholesterol Level 123 mg/dL (0-200) LDL Cholesterol, Calculated 68 mg/dL (0-100) VLDL Cholesterol, Calculated 19 mg/dL (0-40) Non-HDL Cholesterol Calculated 87 mg/dL (0-129) HDL Cholesterol 36 mg/dL (40-60) Cholesterol/HDL Ratio 3.4 Thyroid Stimulating Hormone (TSH) 2.536 uIU/mL (0.358-3.74) Test 09/29/16 08:10 09/29/16 10:26 09/29/16 11:31 09/29/16 16:29 Troponin I Quantitative 0.036 ng/mL (0.000-0.055) O2 Saturation 91 % (92-99) Arterial Blood pH 7.30 (7.35-7.45) Arterial Blood pCO2 at Patient Temp 73 mmHg (35-46) Arterial Blood pO2 at Patient Temp 71 mmHg (65-108) Arterial Blood HCO3 35 mmol/L (21-28) Arterial Blood Base Excess 6 mmol/L (-3-3) FiO2 26 Glucose (Fingerstick) 210 mg/dL (70-99) 126 mg/dL (70-99) Test 09/29/16 21:02 09/30/16 03:27 09/30/16 06:25 09/30/16 07:25 Glucose (Fingerstick) 139 mg/dL (70-99) 80 mg/dL (70-99) White Blood Count 6.9 x10^3/uL (4.0-11.0) Red Blood Count 4.88 x10^6/uL (4.30-5.70) Hemoglobin 13.2 g/dL (13.0-17.5) Hematocrit 40.8 % (39.0-53.0) Mean Corpuscular Volume 84 fL (79-100) Mean Corpuscular Hemoglobin 27 pg (25-35) Mean Corpuscular Hemoglobin Concent 32 g/dL (31-37) Red Cell Distribution Width 16.1 % (11.5-14.5) Platelet Count 224 x10^3/uL (140-400) Neutrophils (%) (Auto) 71 % (31-73) Lymphocytes (%) (Auto) 17 % (24-48) Monocytes (%) (Auto) 10 % (0-9) Eosinophils (%) (Auto) 2 % (0-3) Basophils (%) (Auto) 0 % (0-3) Neutrophils # (Auto) 4.9 x10^3uL (1.8-7.7) Lymphocytes # (Auto) 1.1 x10^3/uL (1.0-4.8) Monocytes # (Auto) 0.7 x10^3/uL (0.0-1.1) Eosinophils # (Auto) 0.2 x10^3/uL (0.0-0.7) Basophils # (Auto) 0.0 x10^3/uL (0.0-0.2) Sodium Level 141 mmol/L (136-145) Potassium Level 3.8 mmol/L (3.5-5.1) Chloride Level 101 mmol/L (98-107) Carbon Dioxide Level 38 mmol/L (21-32) Anion Gap 2 (6-14) Blood Urea Nitrogen 19 mg/dL (8-26) Creatinine 1.0 mg/dL (0.7-1.3) Estimated GFR (Cockcroft-Gault) 76.5 Glucose Level 124 mg/dL (70-99) Calcium Level 7.9 mg/dL (8.5-10.1) Vancomycin Level Trough 15.0 mcg/mL (10.0-20.0) Vancomycin Last Dose Date 09/29/16 Vancomycin Last Dose Time 1900 Test 09/30/16 11:32 Glucose (Fingerstick) 165 mg/dL (70-99) Laboratory Tests Test 09/29/16 16:29 09/29/16 21:02 09/30/16 03:27 09/30/16 06:25 Glucose (Fingerstick) 126 mg/dL (70-99) 139 mg/dL (70-99) White Blood Count 6.9 x10^3/uL (4.0-11.0) Red Blood Count 4.88 x10^6/uL (4.30-5.70) Hemoglobin 13.2 g/dL (13.0-17.5) Hematocrit 40.8 % (39.0-53.0) Mean Corpuscular Volume 84 fL (79-100) Mean Corpuscular Hemoglobin 27 pg (25-35) Mean Corpuscular Hemoglobin Concent 32 g/dL (31-37) Red Cell Distribution Width 16.1 % (11.5-14.5) Platelet Count 224 x10^3/uL (140-400) Neutrophils (%) (Auto) 71 % (31-73) Lymphocytes (%) (Auto) 17 % (24-48) Monocytes (%) (Auto) 10 % (0-9) Eosinophils (%) (Auto) 2 % (0-3) Basophils (%) (Auto) 0 % (0-3) Neutrophils # (Auto) 4.9 x10^3uL (1.8-7.7) Lymphocytes # (Auto) 1.1 x10^3/uL (1.0-4.8) Monocytes # (Auto) 0.7 x10^3/uL (0.0-1.1) Eosinophils # (Auto) 0.2 x10^3/uL (0.0-0.7) Basophils # (Auto) 0.0 x10^3/uL (0.0-0.2) Sodium Level 141 mmol/L (136-145) Potassium Level 3.8 mmol/L (3.5-5.1) Chloride Level 101 mmol/L (98-107) Carbon Dioxide Level 38 mmol/L (21-32) Anion Gap 2 (6-14) Blood Urea Nitrogen 19 mg/dL (8-26) Creatinine 1.0 mg/dL (0.7-1.3) Estimated GFR (Cockcroft-Gault) 76.5 Glucose Level 124 mg/dL (70-99) Calcium Level 7.9 mg/dL (8.5-10.1) Vancomycin Level Trough 15.0 mcg/mL (10.0-20.0) Vancomycin Last Dose Date 09/29/16 Vancomycin Last Dose Time 1900 Test 09/30/16 07:25 09/30/16 11:32 Glucose (Fingerstick) 80 mg/dL (70-99) 165 mg/dL (70-99) Medications Current Medications Furosemide (Lasix) 40 mg 1X ONCE IVP Last administered on 09/28/16 19:01; Start 09/28/16 at 18:45; Stop 09/28/16 at 18:46; Status DC Vancomycin HCl (Vanco Per Pharmacy) 1 each PRN DAILY PRN MC SEE COMMENTS Last administered on 09/30/16 07:26; Start 09/28/16 at 18:45 Vancomycin HCl 2 gm/Sodium Chloride 500 ml @ 250 mls/hr 1X ONCE IV Last administered on 09/28/16 19:10; Start 09/28/16 at 19:00; Stop 09/28/16 at 20:59 ; Status DC Ondansetron HCl (Zofran) 4 mg PRN Q8HRS PRN IV NAUSEA/VOMITING; Start 09/28/16 at 20:15; Stop 09/29/16 at 20:14; Status DC Morphine Sulfate 2 mg PRN Q2HR PRN IV PAIN; Start 09/28/16 at 20:15; Stop 09/29 at 20:14; Status DC Acetaminophen (Tylenol) 650 mg PRN Q4HRS PRN PO FEVER; Start 09/28/16 at 20:15 ; Stop 09/29/16 at 20:14; Status DC Nitroglycerin (Nitrostat) 0.4 mg PRN Q5MIN PRN SL CHEST PAIN; Start 09/28/16 at 20:15; Stop 09/29/16 at 20:14; Status DC Aspirin (Ecotrin) 81 mg DAILY PO Last administered on 09/30/16 08:52; Start at 09:00 Carvedilol (Coreg) 6.25 mg BIDWMEALS PO Last administered on 09/30/16 08:52; Start 09/29/16 at 08:00 Chlorthalidone (Thalitone) 25 mg DAILY PO Last administered on 09/30/16 08:52 ; Start 09/29/16 at 09:00 Clopidogrel Bisulfate (Plavix) 75 mg DAILY PO Last administered on 09/30/16 08 :52; Start 09/29/16 at 09:00 Diazepam (Valium) 5 mg PRN TID PRN PO ANXIETY; Start 09/28/16 at 22:30 Diphenhydramine HCl (Benadryl) 25 mg QHS PO Last administered on 09/29/16 21: 03; Start 09/28/16 at 23:00 Famotidine (Pepcid) 20 mg BID PO Last administered on 09/30/16 08:52; Start at 23:00 Metformin HCl (Glucophage) 1,000 mg BIDWMEALS PO Last administered on 08:51; Start 09/29/16 at 08:00 Polyethylene Glycol (miraLAX PACKET) 17 gm DAILY PO Last administered on 10:50; Start 09/29/16 at 09:00 Potassium Chloride (Klor-Con) 20 meq DAILY PO Last administered on 09/30/16 09 :00; Start 09/29/16 at 09:00 Sennosides (Senna) 17.2 mg BID PO Last administered on 09/29/16 21:03; Start 09/29/16 at 09:00 Spironolactone (Aldactone) 25 mg DAILY PO Last administered on 09/30/16 08:55 ; Start 09/29/16 at 09:00 Non-Formulary Medication 1 puff PRN Q6HRS PRN INH SHORTNESS OF BREATH; Start at 22:30; Status UNV Atorvastatin Calcium (Lipitor) 80 mg QHS PO Last administered on 09/29/16 21: 03; Start 09/29/16 at 21:00 Non-Formulary Medication 1 puff BID IH ; Start 09/29/16 at 09:00; Status UNV Insulin Detemir (Levemir) 45 units QHS SQ Last administered on 09/28/16 23:11 ; Start 09/28/16 at 23:00; Stop 09/29/16 at 14:19; Status DC Losartan Potassium (Cozaar) 100 mg DAILY PO Last administered on 09/30/16 08: 55; Start 09/29/16 at 09:00 Al Hydroxide/Mg Hydroxide (Mylanta Plus Xs) 30 ml PRN Q4HRS PRN PO HEARTBURN / GAS; Start 09/28/16 at 22:30 Oxycodone HCl (Roxicodone) 5 mg PRN Q4HRS PRN PO SEVERE PAIN; Start 09/28/16 at 22:30 Insulin Aspart (NovoLOG) 0-9 UNITS TIDWMEALS SQ Last administered on 09/29/16 13:06; Start 09/29/16 at 08:00 Dextrose (Dextrose 50%-Water Syringe) 12.5 gm PRN Q15MIN PRN IV SEE COMMENTS; Start 09/28/16 at 22:30 Furosemide (Lasix) 40 mg BID92 IVP Last administered on 09/30/16 08:51; Start 09/29/16 at 09:00 Albuterol Sulfate (Ventolin Neb Soln) 2.5 mg RTQID NEB ; Start 09/29/16 at 08:00 ; Status Cancel Albuterol Sulfate (Ventolin Neb Soln) 2.5 mg PRN Q4HRS PRN NEB SHORTNESS OF BREATH; Start 09/28/16 at 22:30 Budesonide (Pulmicort) 0.5 mg RTBID NEB Last administered on 09/30/16 08:03; Start 09/29/16 at 08:00 Albuterol/ Ipratropium (Duoneb) 3 ml RTBID NEB Last administered on 09/30/16 11:25; Start 09/29/16 at 08:00 Aspirin (Kyra Aspirin) 325 mg 1X ONCE PO Last administered on 09/28/16 23:10 ; Start 09/28/16 at 23:30; Stop 09/28/16 at 23:31; Status DC Vancomycin HCl 1.25 gm/Sodium Chloride 250 ml @ 167 mls/hr Q12H IV Last administered on 09/30/16 07:17; Start 09/29/16 at 07:00 Vancomycin HCl 1 each 1X ONCE MC Last administered on 09/30/16 06:30; Start 09/30/16 at 06:30; Stop 09/30/16 at 06:31; Status DC Insulin Detemir (Levemir) 40 units QHS SQ Last administered on 09/29/16 21:10 ; Start 09/29/16 at 21:00 Acetaminophen (Tylenol) 650 mg PRN Q6HRS PRN PO FEVER; Start 09/29/16 at 14:30 Ondansetron HCl (Zofran) 4 mg PRN Q6HRS PRN IV NAUSEA/VOMITING; Start 09/29/16 at 14:30 Morphine Sulfate 2 mg PRN Q2HR PRN IV PAIN; Start 09/29/16 at 14:30 Tramadol HCl (Ultram) 50 mg PRN Q6HRS PRN PO PAIN Last administered on t 21:04; Start 09/29/16 at 14:30 Hydralazine HCl (Apresoline) 10 mg PRN Q4HRS PRN IVP ELEVATED BP, SEE COMMENTS ; Start 09/29/16 at 14:30 Docusate Sodium (Colace) 100 mg PRN DAILY PRN PO CONSTIPATION; Start 09/29/16 at 14:30 Active Scripts Active Reported Proair Hfa Inhaler (Albuterol Sulfate) 8.5 Gm Hfa.aer.ad 1 Puff INH PRN Q6HRS PRN Advair 250-50 Diskus (Fluticasone/Salmeterol) 1 Each Disk.w.dev 1 Puff IH BID Miralax (Polyethylene Glycol 3350) 17 Gm Powd.pack 1 Packet PO DAILY Chlorthalidone 25 Mg Tablet 1 Tab PO DAILY Aspir 81 (Aspirin) 81 Mg Tablet.dr 81 Mg PO DAILY Maalox Advanced Suspension (Mag Hydrox/Aluminum Hyd/Simeth) 355 Ml Oral.susp 355 Ml PO PRN Q4HRS Aldactone (Spironolactone) 25 Mg Tablet 1 Tab PO DAILY Senokot (Sennosides) 8.6 Mg Tablet 2 Tab PO BID Klor-Con M20 (Potassium Chloride) 20 Meq Tab.er.prt 1 Tab PO DAILY Oxycodone Hcl 5 Mg Capsule 1 Cap PO PRN Q4HRS PRN Glucophage (Metformin Hcl) 500 Mg Tablet 1,000 Mg PO BIDWMEALS Cozaar (Losartan Potassium) 100 Mg Tablet 100 Mg PO DAILY Lantus Solostar (Insulin Glargine,Hum.rec.anlog) 100 Unit/1 Ml Insuln.pen 45 Unit SQ HS Pepcid (Famotidine) 20 Mg Tablet 20 Mg PO BID Benadryl (Diphenhydramine Hcl) 25 Mg Capsule 1 Cap PO QHS Valium (Diazepam) 5 Mg Tablet 5 Mg PO TID PRN Clopidogrel (Clopidogrel Bisulfate) 75 Mg Tablet 1 Tab PO DAILY Coreg (Carvedilol) 6.25 Mg Tablet 1 Tab PO BID Lipitor (Atorvastatin Calcium) 80 Mg Tablet 1 Tab PO DAILY Vitals/I & O Vital Sign - Last 24 Hours 09/29/16 09/29/16 09/29/16 09/29/16 15:00 18:32 19:25 19:38 Temp 98.1 98.5 98.1 98.5 Pulse 62 65 63 Resp 20 18 B/P (MAP) 122/56 (78) 122/56 141/62 (88) Pulse Ox 91 95 93 O2 Delivery Nasal Cannula Nasal Cannula O2 Flow Rate 2.0 2.0 1.5 09/29/16 09/29/16 09/29/16 09/29/16 20:00 21:04 22:04 22:40 Temp 97.8 97.8 Pulse 63 Resp 18 B/P (MAP) 144/60 (88) Pulse Ox 93 93 92 O2 Delivery Nasal Cannula Nasal Cannula Nasal Cannula Nasal Cannula O2 Flow Rate 1.5 1.5 1.5 2.0 09/30/16 09/30/16 09/30/16 09/30/16 03:00 03:05 07:15 07:40 Temp 98.3 97.5 98.3 97.5 Pulse 62 58 Resp 18 18 B/P (MAP) 147/58 (87) 146/56 (86) Pulse Ox 80 92 91 O2 Delivery Room Air Nasal Cannula Nasal Cannula Nasal Cannula O2 Flow Rate 2.0 2.0 2.0 09/30/16 09/30/16 09/30/16 09/30/16 08:04 08:52 08:55 11:00 Temp 98.3 98.3 Pulse 73 73 57 Resp 18 B/P (MAP) 146/56 146/56 108/44 (65) Pulse Ox 90 91 O2 Delivery Nasal Cannula Nasal Cannula O2 Flow Rate 1.5 2.0 09/30/16 11:26 O2 Delivery Nasal Cannula O2 Flow Rate 1.5 Intake and Output 09/29/16 09/29/16 09/30/16 14:59 22:59 06:59 Intake Total 250 ml 650 ml 940 ml Output Total 400 ml 500 ml 200 ml Balance -150 ml 150 ml 740 ml Nutrition Consultation Dietary Evaluation: Recommendations by RD: Dietary education by RD Comments: Provided education handout on the diet for CHF and nutrition label reading. Discussed with pt Add the diabetic diet restriction due to PmHx Expected Outcomes/Goals: meet 75% estimated nutrition needs Malnutrition Findings: Malnutrition related to morbid: No Weight Status: Obese TEDDY NEWMAN MD Sep 30, 2016 12:55
[2016-09-30 15:00] VITALS: BP 120/78
--- NOTE | 2016-09-30 15:22 | PDOC ---
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 09/30/16 1522: CARDIO Progress Notes Date and Time Date of Service 09/30/2016 Time of Evaluation 1400 Subjective Subjective: No Chest Pain, No Palpitations, No Dizziness, Other (SOa much better) Vitals Vitals Vital Signs Date Time Temp Pulse Resp B/P (MAP) Pulse Ox O2 Delivery O2 Flow Rate FiO2 09/30/16 15:00 98.5 58 18 120/78 (92) 93 Nasal Cannula 2.0 98.5 Weight Weight [ ] Input and Output Intake and Output Intake and Output 09/30/16 07:00 Intake Total 1840 ml Output Total 1400 ml Balance 440 ml Intake Oral 1340 ml IV Total 500 ml Output Urine Total 1400 ml # Voids 2 # Bowel Movements 1 Laboratory Labs Laboratory Tests Test 09/29/16 16:29 09/29/16 21:02 09/30/16 03:27 09/30/16 06:25 Glucose (Fingerstick) 126 mg/dL (70-99) 139 mg/dL (70-99) White Blood Count 6.9 x10^3/uL (4.0-11.0) Red Blood Count 4.88 x10^6/uL (4.30-5.70) Hemoglobin 13.2 g/dL (13.0-17.5) Hematocrit 40.8 % (39.0-53.0) Mean Corpuscular Volume 84 fL (79-100) Mean Corpuscular Hemoglobin 27 pg (25-35) Mean Corpuscular Hemoglobin Concent 32 g/dL (31-37) Red Cell Distribution Width 16.1 % (11.5-14.5) Platelet Count 224 x10^3/uL (140-400) Neutrophils (%) (Auto) 71 % (31-73) Lymphocytes (%) (Auto) 17 % (24-48) Monocytes (%) (Auto) 10 % (0-9) Eosinophils (%) (Auto) 2 % (0-3) Basophils (%) (Auto) 0 % (0-3) Neutrophils # (Auto) 4.9 x10^3uL (1.8-7.7) Lymphocytes # (Auto) 1.1 x10^3/uL (1.0-4.8) Monocytes # (Auto) 0.7 x10^3/uL (0.0-1.1) Eosinophils # (Auto) 0.2 x10^3/uL (0.0-0.7) Basophils # (Auto) 0.0 x10^3/uL (0.0-0.2) Sodium Level 141 mmol/L (136-145) Potassium Level 3.8 mmol/L (3.5-5.1) Chloride Level 101 mmol/L (98-107) Carbon Dioxide Level 38 mmol/L (21-32) Anion Gap 2 (6-14) Blood Urea Nitrogen 19 mg/dL (8-26) Creatinine 1.0 mg/dL (0.7-1.3) Estimated GFR (Cockcroft-Gault) 76.5 Glucose Level 124 mg/dL (70-99) Calcium Level 7.9 mg/dL (8.5-10.1) Vancomycin Level Trough 15.0 mcg/mL (10.0-20.0) Vancomycin Last Dose Date 09/29/16 Vancomycin Last Dose Time 1900 Test 09/30/16 07:25 09/30/16 11:32 Glucose (Fingerstick) 80 mg/dL (70-99) 165 mg/dL (70-99) Physical Exam HEENT: Neck Supple W Full Motion Chest: Symmetric LUNGS: Clear to Auscultation Heart: S1S2, RRR (SR with no significant ectopies), murmurs (2/6 systolic murmur to LLS border) Abdomen: Soft N/T Extremities: No Calf Tenderness, Other (1+ bilateral LE pitting edema) Neurology: alert, oriented, follow commands Assessment Assessment 1. Acute on chronic respiratory failure with severe pulmonary HTN with likely CARLIE 2. Acute on chronic diastolic CHF: improved 3. HTN: better controlled 4. DM2/HLP 5. Possible CAD: LHC about 2 yrs ago but not sure. Still awaiting [facility] records 6. Hx of recent TIA 7. Encephalopathy: hypercapnia induced. Better today Recommendations 1. Continue with diuretic therapy. Will transition to PO tomorrow. 2. Will review [facility] records when available 3. Continue with secondary prevention LAURI CRUZ MD 09/30/16 6210: CARDIO Progress Notes Plan Plan Pt. seen and examined. Agree with above HORTICULTURE SUPERVISOR note. No acute events. Still volume overloaded. Reviewed [facility] records. Patient is very non-compliant with diet/salt restriction based on office note from LOS on 09/16/2016. Supportive care. Restart home meds upon DC> 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 APRN Sep 30, 2016 15:22 LAURI CRUZ MD Sep 30, 2016 22:10
[2016-09-30 19:36] VITALS: BP 121/56
[2016-09-30] MEDS: ATORVASTATIN CALCIUM 40 MG TABLET. PO SCH (20:57)
[2016-09-30] MEDS: traMADol 50 MG TABLET PO PRN (20:58)
[2016-09-30] MEDS: diphenhydrAMINE HCL 25 MG CAPSULE PO SCH (20:58)
[2016-09-30] MEDS: INSULIN DETEMIR 300 UNITS/3 ML INSULN.PEN. SQ SCH (21:01)
[2016-09-30 22:06] VITALS: BP 148/65
[2016-10-01 03:59] VITALS: BP 154/63
[2016-10-01] MEDS: VANCOMYCIN 1.25 GM in IV NORMAL SALINE 250ML 250 ML IV SCH ×2 (06:45→19:24)
[2016-10-01 07:15] VITALS: BP 170/70
[2016-10-01] MEDS: IPRATRPIUM/ALBUTEROL 0.5/2.5MG 3 ML NEBU. NEB SCH ×2 (07:41→20:21)
[2016-10-01] MEDS: BUDESONIDE 0.5 MG/2 ML NEBU. NEB SCH ×2 (07:41→20:21)
[2016-10-01] MEDS: INSULIN ASPART 300 UNITS/3 ML INSULN.PEN SQ SCH ×3 (08:00→17:00)
--- NOTE | 2016-10-01 08:44 | PDOC ---
PROGRESS NOTES Chief Complaint Chief Complaint acute hypoxic respiratory failure with diastolic CHF exacerbation, acute, and PHTN PHTN DM2 anxiety moderate malnutrition obesity, BMI 36 bl leg multiple folliculitis with mild cellulitis h/o CAD 05/2016 plan; fu with card, echo done lasix 40mg iv bid ptot dvt ppx decrease levemir to 40u qhs, ssi, check hba1c vanco for now, able to change to po soon nc as needed watch in and out History of Present Illness History of Present Illness BL LEG mild erythema with multiple folliculitis, cellulitis, better. Low BS today 66 - on 40 units levemir qhs bl leg edema 2+, tight legs on NC 2L, NEW TO Him HAs bIPAP at home he claims, just doesnt known where it is Walks the halls no more SOA he claims Echo: grade 1 diastolic, EF ok ON IV antibiotic and lasix 40 IV bID, lytes and creat ok Was on aldactone at home? PLAN: CPM PT/OT Possible home wednesday Vitals Vitals Vital Signs Date Time Temp Pulse Resp B/P (MAP) Pulse Ox O2 Delivery O2 Flow Rate FiO2 10/01/16 07:44 98 1.5 10/01/16 07:15 97.9 65 18 170/70 (103) BiPAP/CPAP 97.9 Physical Exam General: Oriented X3, Cooperative, mild distress Heart: Regular rate (SR), Normal S1, Normal S2, Other (2/6 systolic murmur to LLS border ) Lungs: Crackles Abdomen: Soft, No tenderness Extremities: No cyanosis, Other (2+ bilateral LE pitting edema) Skin: Other (erthema with mult small dark red lesions with fluid) Labs LABS Laboratory Tests Test 09/30/16 11:32 09/30/16 16:27 09/30/16 21:00 10/01/16 07:28 Glucose (Fingerstick) 165 mg/dL (70-99) 180 mg/dL (70-99) 175 mg/dL (70-99) 66 mg/dL (70-99) Test 10/01/16 07:53 Glucose (Fingerstick) 97 mg/dL (70-99) Review of Systems Review of Systems denies soa, cp, emesis abd pain Assessment and Plan Assessmemt and Plan Problems Medical Problems: (1) Acute exacerbation of congestive heart failure Status: Acute (2) Congestive heart failure Status: Acute (3) Essential hypertension Status: Acute (4) Hypoxia Status: Acute (5) Peripheral edema Status: Acute Problems: Comment Review of Relevant I have reviewed the following items margaret (where applicable) has been applied. Labs Laboratory Tests Test 09/29/16 10:26 09/29/16 11:31 09/29/16 16:29 09/29/16 21:02 O2 Saturation 91 % (92-99) Arterial Blood pH 7.30 (7.35-7.45) Arterial Blood pCO2 at Patient Temp 73 mmHg (35-46) Arterial Blood pO2 at Patient Temp 71 mmHg (65-108) Arterial Blood HCO3 35 mmol/L (21-28) Arterial Blood Base Excess 6 mmol/L (-3-3) FiO2 26 Glucose (Fingerstick) 210 mg/dL (70-99) 126 mg/dL (70-99) 139 mg/dL (70-99) Test 09/30/16 03:27 09/30/16 06:25 09/30/16 07:25 09/30/16 11:32 White Blood Count 6.9 x10^3/uL (4.0-11.0) Red Blood Count 4.88 x10^6/uL (4.30-5.70) Hemoglobin 13.2 g/dL (13.0-17.5) Hematocrit 40.8 % (39.0-53.0) Mean Corpuscular Volume 84 fL (79-100) Mean Corpuscular Hemoglobin 27 pg (25-35) Mean Corpuscular Hemoglobin Concent 32 g/dL (31-37) Red Cell Distribution Width 16.1 % (11.5-14.5) Platelet Count 224 x10^3/uL (140-400) Neutrophils (%) (Auto) 71 % (31-73) Lymphocytes (%) (Auto) 17 % (24-48) Monocytes (%) (Auto) 10 % (0-9) Eosinophils (%) (Auto) 2 % (0-3) Basophils (%) (Auto) 0 % (0-3) Neutrophils # (Auto) 4.9 x10^3uL (1.8-7.7) Lymphocytes # (Auto) 1.1 x10^3/uL (1.0-4.8) Monocytes # (Auto) 0.7 x10^3/uL (0.0-1.1) Eosinophils # (Auto) 0.2 x10^3/uL (0.0-0.7) Basophils # (Auto) 0.0 x10^3/uL (0.0-0.2) Sodium Level 141 mmol/L (136-145) Potassium Level 3.8 mmol/L (3.5-5.1) Chloride Level 101 mmol/L (98-107) Carbon Dioxide Level 38 mmol/L (21-32) Anion Gap 2 (6-14) Blood Urea Nitrogen 19 mg/dL (8-26) Creatinine 1.0 mg/dL (0.7-1.3) Estimated GFR (Cockcroft-Gault) 76.5 Glucose Level 124 mg/dL (70-99) Calcium Level 7.9 mg/dL (8.5-10.1) Vancomycin Level Trough 15.0 mcg/mL (10.0-20.0) Vancomycin Last Dose Date 09/29/16 Vancomycin Last Dose Time 1900 Glucose (Fingerstick) 80 mg/dL (70-99) 165 mg/dL (70-99) Test 09/30/16 16:27 09/30/16 21:00 10/01/16 07:28 10/01/16 07:53 Glucose (Fingerstick) 180 mg/dL (70-99) 175 mg/dL (70-99) 66 mg/dL (70-99) 97 mg/dL (70-99) Laboratory Tests Test 09/30/16 11:32 09/30/16 16:27 09/30/16 21:00 10/01/16 07:28 Glucose (Fingerstick) 165 mg/dL (70-99) 180 mg/dL (70-99) 175 mg/dL (70-99) 66 mg/dL (70-99) Test 10/01/16 07:53 Glucose (Fingerstick) 97 mg/dL (70-99) Medications Current Medications Furosemide (Lasix) 40 mg 1X ONCE IVP Last administered on 09/28/16t 19:01; Start 09/28/16 at 18:45; Stop 09/28/16 at 18:46; Status DC Vancomycin HCl (Vanco Per Pharmacy) 1 each PRN DAILY PRN MC SEE COMMENTS Last administered on 09/30/16 07:26; Start 09/28/16 at 18:45 Vancomycin HCl 2 gm/Sodium Chloride 500 ml @ 250 mls/hr 1X ONCE IV Last administered on 09/28/16 19:10; Start 09/28/16 at 19:00; Stop 09/28/16 at 20:59 ; Status DC Ondansetron HCl (Zofran) 4 mg PRN Q8HRS PRN IV NAUSEA/VOMITING; Start 09/28/16 at 20:15; Stop 09/29/16 at 20:14; Status DC Morphine Sulfate 2 mg PRN Q2HR PRN IV PAIN; Start 09/28/16 at 20:15; Stop 09/29 at 20:14; Status DC Acetaminophen (Tylenol) 650 mg PRN Q4HRS PRN PO FEVER; Start 09/28/16 at 20:15 ; Stop 09/29/16 at 20:14; Status DC Nitroglycerin (Nitrostat) 0.4 mg PRN Q5MIN PRN SL CHEST PAIN; Start 09/28/16 at 20:15; Stop 09/29/16 at 20:14; Status DC Aspirin (Ecotrin) 81 mg DAILY PO Last administered on 09/30/16 08:52; Start at 09:00 Carvedilol (Coreg) 6.25 mg BIDWMEALS PO Last administered on 09/30/16 17:34; Start 09/29/16 at 08:00 Chlorthalidone (Thalitone) 25 mg DAILY PO Last administered on 09/30/16 08:52 ; Start 09/29/16 at 09:00; Stop 10/01/16 at 08:11; Status DC Clopidogrel Bisulfate (Plavix) 75 mg DAILY PO Last administered on 09/30/16 08 :52; Start 09/29/16 at 09:00 Diazepam (Valium) 5 mg PRN TID PRN PO ANXIETY; Start 09/28/16 at 22:30 Diphenhydramine HCl (Benadryl) 25 mg QHS PO Last administered on 09/30/16 20: 58; Start 09/28/16 at 23:00 Famotidine (Pepcid) 20 mg BID PO Last administered on 09/30/16 20:57; Start at 23:00 Metformin HCl (Glucophage) 1,000 mg BIDWMEALS PO Last administered on 17:33; Start 09/29/16 at 08:00 Polyethylene Glycol (miraLAX PACKET) 17 gm DAILY PO Last administered on 10:50; Start 09/29/16 at 09:00 Potassium Chloride (Klor-Con) 20 meq DAILY PO Last administered on 09/30/16 09 :00; Start 09/29/16 at 09:00 Sennosides (Senna) 17.2 mg BID PO Last administered on 09/30/16 20:57; Start 09/29/16 at 09:00 Spironolactone (Aldactone) 25 mg DAILY PO Last administered on 09/30/16 08:55 ; Start 09/29/16 at 09:00 Non-Formulary Medication 1 puff PRN Q6HRS PRN INH SHORTNESS OF BREATH; Start at 22:30; Status UNV Atorvastatin Calcium (Lipitor) 80 mg QHS PO Last administered on 09/30/16 20: 57; Start 09/29/16 at 21:00 Non-Formulary Medication 1 puff BID IH ; Start 09/29/16 at 09:00; Status UNV Insulin Detemir (Levemir) 45 units QHS SQ Last administered on 09/28/16 23:11 ; Start 09/28/16 at 23:00; Stop 09/29/16 at 14:19; Status DC Losartan Potassium (Cozaar) 100 mg DAILY PO Last administered on 09/30/16 08: 55; Start 09/29/16 at 09:00 Al Hydroxide/Mg Hydroxide (Mylanta Plus Xs) 30 ml PRN Q4HRS PRN PO HEARTBURN / GAS; Start 09/28/16 at 22:30 Oxycodone HCl (Roxicodone) 5 mg PRN Q4HRS PRN PO SEVERE PAIN; Start 09/28/16 at 22:30 Insulin Aspart (NovoLOG) 0-9 UNITS TIDWMEALS SQ Last administered on 09/29/16 13:06; Start 09/29/16 at 08:00 Dextrose (Dextrose 50%-Water Syringe) 12.5 gm PRN Q15MIN PRN IV SEE COMMENTS; Start 09/28/16 at 22:30 Furosemide (Lasix) 40 mg BID92 IVP Last administered on 09/30/16 14:07; Start 09/29/16 at 09:00 Albuterol Sulfate (Ventolin Neb Soln) 2.5 mg RTQID NEB ; Start 09/29/16 at 08:00 ; Status Cancel Albuterol Sulfate (Ventolin Neb Soln) 2.5 mg PRN Q4HRS PRN NEB SHORTNESS OF BREATH; Start 09/28/16 at 22:30 Budesonide (Pulmicort) 0.5 mg RTBID NEB Last administered on 10/01/16 07:41; Start 09/29/16 at 08:00 Albuterol/ Ipratropium (Duoneb) 3 ml RTBID NEB Last administered on 10/01/16 07:41; Start 09/29/16 at 08:00 Aspirin (Kyra Aspirin) 325 mg 1X ONCE PO Last administered on 09/28/16 23:10 ; Start 09/28/16 at 23:30; Stop 09/28/16 at 23:31; Status DC Vancomycin HCl 1.25 gm/Sodium Chloride 250 ml @ 167 mls/hr Q12H IV Last administered on 10/01/16 06:45; Start 09/29/16 at 07:00 Vancomycin HCl 1 each 1X ONCE MC Last administered on 09/30/16 06:30; Start 09/30/16 at 06:30; Stop 09/30/16 at 06:31; Status DC Insulin Detemir (Levemir) 40 units QHS SQ Last administered on 09/30/16 21:01 ; Start 09/29/16 at 21:00; Stop 10/01/16 at 07:43; Status DC Acetaminophen (Tylenol) 650 mg PRN Q6HRS PRN PO FEVER; Start 09/29/16 at 14:30 Ondansetron HCl (Zofran) 4 mg PRN Q6HRS PRN IV NAUSEA/VOMITING; Start 09/29/16 at 14:30 Morphine Sulfate 2 mg PRN Q2HR PRN IV PAIN; Start 09/29/16 at 14:30 Tramadol HCl (Ultram) 50 mg PRN Q6HRS PRN PO PAIN Last administered on 7/26/ 17at 20:58; Start 09/29/16 at 14:30 Hydralazine HCl (Apresoline) 10 mg PRN Q4HRS PRN IVP ELEVATED BP, SEE COMMENTS ; Start 09/29/16 at 14:30 Docusate Sodium (Colace) 100 mg PRN DAILY PRN PO CONSTIPATION; Start 09/29/16 at 14:30 Insulin Detemir (Levemir) 30 units QHS SQ ; Start 10/01/16 at 21:00 Active Scripts Active Reported Proair Hfa Inhaler (Albuterol Sulfate) 8.5 Gm Hfa.aer.ad 1 Puff INH PRN Q6HRS PRN Advair 250-50 Diskus (Fluticasone/Salmeterol) 1 Each Disk.w.dev 1 Puff IH BID Miralax (Polyethylene Glycol 3350) 17 Gm Powd.pack 1 Packet PO DAILY Chlorthalidone 25 Mg Tablet 1 Tab PO DAILY Aspir 81 (Aspirin) 81 Mg Tablet.dr 81 Mg PO DAILY Maalox Advanced Suspension (Mag Hydrox/Aluminum Hyd/Simeth) 355 Ml Oral.susp 355 Ml PO PRN Q4HRS Aldactone (Spironolactone) 25 Mg Tablet 1 Tab PO DAILY Senokot (Sennosides) 8.6 Mg Tablet 2 Tab PO BID Klor-Con M20 (Potassium Chloride) 20 Meq Tab.er.prt 1 Tab PO DAILY Oxycodone Hcl 5 Mg Capsule 1 Cap PO PRN Q4HRS PRN Glucophage (Metformin Hcl) 500 Mg Tablet 1,000 Mg PO BIDWMEALS Cozaar (Losartan Potassium) 100 Mg Tablet 100 Mg PO DAILY Lantus Solostar (Insulin Glargine,Hum.rec.anlog) 100 Unit/1 Ml Insuln.pen 45 Unit SQ HS Pepcid (Famotidine) 20 Mg Tablet 20 Mg PO BID Benadryl (Diphenhydramine Hcl) 25 Mg Capsule 1 Cap PO QHS Valium (Diazepam) 5 Mg Tablet 5 Mg PO TID PRN Clopidogrel (Clopidogrel Bisulfate) 75 Mg Tablet 1 Tab PO DAILY Coreg (Carvedilol) 6.25 Mg Tablet 1 Tab PO BID Lipitor (Atorvastatin Calcium) 80 Mg Tablet 1 Tab PO DAILY Vitals/I & O Vital Sign - Last 24 Hours 7/2609/30/16 09/30/16 09/30/16 08:52 08:55 11:00 11:26 Temp 98.3 98.3 Pulse 73 73 57 Resp 18 B/P (MAP) 146/56 146/56 108/44 (65) Pulse Ox 91 O2 Delivery Nasal Cannula Nasal Cannula O2 Flow Rate 2.0 1.5 09/30/16 09/30/16 09/30/16 09/30/16 15:00 17:34 19:36 20:00 Temp 98.5 98.7 98.5 98.7 Pulse 58 74 65 Resp 18 16 B/P (MAP) 120/78 (92) 120/78 121/56 (77) Pulse Ox 93 91 O2 Delivery Nasal Cannula Nasal Cannula Nasal Cannula O2 Flow Rate 2.0 2.0 09/30/16 09/30/16 09/30/16 09/30/16 20:58 21:58 22:06 23:13 Temp 98.8 98.8 Pulse 63 Resp 18 B/P (MAP) 148/65 (92) Pulse Ox 91 92 92 98 O2 Delivery Nasal Cannula Nasal Cannula Nasal Cannula BiPAP/CPAP O2 Flow Rate 2.0 1.0 1.0 10/01/16 10/01/16 10/01/16 10/01/16 01:00 02:21 03:59 07:15 Temp 97.4 97.9 97.4 97.9 Pulse 56 65 Resp 16 18 B/P (MAP) 154/63 (93) 170/70 (103) Pulse Ox 96 96 O2 Delivery BiPAP/CPAP BiPAP/CPAP BiPAP/CPAP BiPAP/CPAP O2 Flow Rate 1.0 10/01/16 07:44 Pulse Ox 98 O2 Flow Rate 1.5 Intake and Output 09/30/16 09/30/16 10/01/16 14:59 22:59 06:59 Intake Total 360 ml 750 ml 0 ml Output Total 550 ml 1375 ml 350 ml Balance -190 ml -625 ml -350 ml Nutrition Consultation Dietary Evaluation: Recommendations by RD: Dietary education by RD Comments: Provided education handout on the diet for CHF and nutrition label reading. Discussed with pt Add the diabetic diet restriction due to PmHx Expected Outcomes/Goals: meet 75% estimated nutrition needs Malnutrition Findings: Malnutrition related to morbid: No Weight Status: Obese DENIZ RUTLEDGE MD Oct 01, 2016 08:44
[2016-10-01] MEDS: POLYETHYLENE GLYCOL 3350 17 GM PACKET. PO SCH (09:00)
[2016-10-01] MEDS: SENNOSIDES 8.6 MG TABLET PO SCH ×2 (09:00→21:06)
[2016-10-01] MEDS: VANCOMYCIN PER PHARMACY MC PRN (09:00)
[2016-10-01] MEDS: metFORMIN 500 MG TABLET PO SCH ×2 (09:05→17:07)
[2016-10-01] MEDS: ASPIRIN ENTERIC COATED 81 MG TABLET.DR. PO SCH (09:05)
[2016-10-01] MEDS: SPIRONOLACTONE 25 MG TABLET PO SCH (09:05)
[2016-10-01] MEDS: FAMOTIDINE 20 MG TABLET. PO SCH ×2 (09:06→21:06)
[2016-10-01] MEDS: POTASSIUM CHLORIDE 20 MEQ TABLET.ER. PO SCH (09:06)
[2016-10-01] MEDS: CLOPIDOGREL BISULFATE 75 MG TABLET PO SCH (09:07)
[2016-10-01] MEDS: LOSARTAN POTASSIUM 50 MG TABLET. PO SCH (09:07)
[2016-10-01] MEDS: CARVEDILOL 6.25 MG TABLET. PO SCH ×2 (09:07→17:07)
[2016-10-01] MEDS: FUROSEMIDE 40 MG/4 ML VIAL. IVP SCH (09:08)
[2016-10-01 09:55] LABS: CALCIUM 8.3 mg/dL (8.5-10.1); CREATININE 0.9 mg/dL (0.7-1.3); GFR 86.4; MAGNESIUM 1.6 mg/dL (1.8-2.4); POTASSIUM 3.4 mmol/L (3.5-5.1)
--- NOTE | 2016-10-01 10:14 | PDOC ---
PULMONARY PROGRESS NOTES Subjective LESS SOA Vitals Vital Signs Date Time Temp Pulse Resp B/P (MAP) Pulse Ox O2 Delivery O2 Flow Rate FiO2 10/01/16 09:07 65 170/70 10/01/16 07:44 98 1.5 10/01/16 07:15 97.9 18 BiPAP/CPAP 97.9 ROS: No Nausea, No Chest Pain, No Abdominal Pain, No Increase Cough Lungs: Crackles Cardiovascular: S1, S2 Abdomen: Soft Neuro Exam: Alert Extremities: No Edema Skin: Warm Labs Laboratory Tests Test 09/29/16 10:26 09/29/16 11:31 09/29/16 16:29 09/29/16 21:02 O2 Saturation 91 % (92-99) Arterial Blood pH 7.30 (7.35-7.45) Arterial Blood pCO2 at Patient Temp 73 mmHg (35-46) Arterial Blood pO2 at Patient Temp 71 mmHg (65-108) Arterial Blood HCO3 35 mmol/L (21-28) Arterial Blood Base Excess 6 mmol/L (-3-3) FiO2 26 Glucose (Fingerstick) 210 mg/dL (70-99) 126 mg/dL (70-99) 139 mg/dL (70-99) Test 09/30/16 03:27 09/30/16 06:25 09/30/16 07:25 09/30/16 11:32 White Blood Count 6.9 x10^3/uL (4.0-11.0) Red Blood Count 4.88 x10^6/uL (4.30-5.70) Hemoglobin 13.2 g/dL (13.0-17.5) Hematocrit 40.8 % (39.0-53.0) Mean Corpuscular Volume 84 fL (79-100) Mean Corpuscular Hemoglobin 27 pg (25-35) Mean Corpuscular Hemoglobin Concent 32 g/dL (31-37) Red Cell Distribution Width 16.1 % (11.5-14.5) Platelet Count 224 x10^3/uL (140-400) Neutrophils (%) (Auto) 71 % (31-73) Lymphocytes (%) (Auto) 17 % (24-48) Monocytes (%) (Auto) 10 % (0-9) Eosinophils (%) (Auto) 2 % (0-3) Basophils (%) (Auto) 0 % (0-3) Neutrophils # (Auto) 4.9 x10^3uL (1.8-7.7) Lymphocytes # (Auto) 1.1 x10^3/uL (1.0-4.8) Monocytes # (Auto) 0.7 x10^3/uL (0.0-1.1) Eosinophils # (Auto) 0.2 x10^3/uL (0.0-0.7) Basophils # (Auto) 0.0 x10^3/uL (0.0-0.2) Sodium Level 141 mmol/L (136-145) Potassium Level 3.8 mmol/L (3.5-5.1) Chloride Level 101 mmol/L (98-107) Carbon Dioxide Level 38 mmol/L (21-32) Anion Gap 2 (6-14) Blood Urea Nitrogen 19 mg/dL (8-26) Creatinine 1.0 mg/dL (0.7-1.3) Estimated GFR (Cockcroft-Gault) 76.5 Glucose Level 124 mg/dL (70-99) Calcium Level 7.9 mg/dL (8.5-10.1) Vancomycin Level Trough 15.0 mcg/mL (10.0-20.0) Vancomycin Last Dose Date 09/29/16 Vancomycin Last Dose Time 1900 Glucose (Fingerstick) 80 mg/dL (70-99) 165 mg/dL (70-99) Test 09/30/16 16:27 09/30/16 21:00 10/01/16 07:28 10/01/16 07:53 Glucose (Fingerstick) 180 mg/dL (70-99) 175 mg/dL (70-99) 66 mg/dL (70-99) 97 mg/dL (70-99) Test 10/01/16 09:18 Sodium Level 140 mmol/L (136-145) Potassium Level 3.4 mmol/L (3.5-5.1) Chloride Level 96 mmol/L (98-107) Carbon Dioxide Level 39 mmol/L (21-32) Anion Gap 5 (6-14) Blood Urea Nitrogen 16 mg/dL (8-26) Creatinine 0.9 mg/dL (0.7-1.3) Estimated GFR (Cockcroft-Gault) 86.4 Glucose Level 170 mg/dL (70-99) Calcium Level 8.3 mg/dL (8.5-10.1) Magnesium Level 1.6 mg/dL (1.8-2.4) Laboratory Tests Test 09/30/16 11:32 09/30/16 16:27 09/30/16 21:00 10/01/16 07:28 Glucose (Fingerstick) 165 mg/dL (70-99) 180 mg/dL (70-99) 175 mg/dL (70-99) 66 mg/dL (70-99) Test 10/01/16 07:53 10/01/16 09:18 Glucose (Fingerstick) 97 mg/dL (70-99) Sodium Level 140 mmol/L (136-145) Potassium Level 3.4 mmol/L (3.5-5.1) Chloride Level 96 mmol/L (98-107) Carbon Dioxide Level 39 mmol/L (21-32) Anion Gap 5 (6-14) Blood Urea Nitrogen 16 mg/dL (8-26) Creatinine 0.9 mg/dL (0.7-1.3) Estimated GFR (Cockcroft-Gault) 86.4 Glucose Level 170 mg/dL (70-99) Calcium Level 8.3 mg/dL (8.5-10.1) Magnesium Level 1.6 mg/dL (1.8-2.4) Medications Active Scripts Medications Dose Route/Sig Max Daily Dose Days Date Category Proair Hfa Inhaler (Albuterol Sulfate) 8.5 Gm Hfa.aer.ad 1 Puff INH PRN Q6HRS PRN 09/28/16 Reported Advair 250-50 Diskus (Fluticasone/Salmeterol) 1 Each Disk.w.dev 1 Puff IH BID 09/28/16 Reported Miralax (Polyethylene Glycol 3350) 17 Gm Powd.pack 1 Packet PO DAILY 09/28/16 Reported Chlorthalidone 25 Mg Tablet 1 Tab PO DAILY 09/28/16 Reported Aspir 81 (Aspirin) 81 Mg Tablet.dr 81 Mg PO DAILY 09/28/16 Reported Maalox Advanced Suspension (Mag Hydrox/Aluminum Hyd/Simeth) 355 Ml Oral.susp 355 Ml PO PRN Q4HRS 09/28/16 Reported Aldactone (Spironolactone) 25 Mg Tablet 1 Tab PO DAILY 09/28/16 Reported Senokot (Sennosides) 8.6 Mg Tablet 2 Tab PO BID 09/28/16 Reported Klor-Con M20 (Potassium Chloride) 20 Meq Tab.er.prt 1 Tab PO DAILY 09/28/16 Reported Oxycodone Hcl 5 Mg Capsule 1 Cap PO PRN Q4HRS PRN 09/28/16 Reported Glucophage (Metformin Hcl) 500 Mg Tablet 1,000 Mg PO BIDWMEALS 09/28/16 Reported Cozaar (Losartan Potassium) 100 Mg Tablet 100 Mg PO DAILY 09/28/16 Reported Lantus Solostar (Insulin Glargine,Hum.rec.anlog) 100 Unit/1 Ml Insuln.pen 45 Unit SQ HS 09/28/16 Reported Pepcid (Famotidine) 20 Mg Tablet 20 Mg PO BID 09/28/16 Reported Benadryl (Diphenhydramine Hcl) 25 Mg Capsule 1 Cap PO QHS 09/28/16 Reported Valium (Diazepam) 5 Mg Tablet 5 Mg PO TID PRN 09/28/16 Reported Clopidogrel (Clopidogrel Bisulfate) 75 Mg Tablet 1 Tab PO DAILY 09/28/16 Reported Coreg (Carvedilol) 6.25 Mg Tablet 1 Tab PO BID 09/28/16 Reported Lipitor (Atorvastatin Calcium) 80 Mg Tablet 1 Tab PO DAILY 09/28/16 Reported Impression . IMPRESSION: 1. [id number] hypercapnic hypoxemic respiratory failure, suspect diastolic heart failure. 2. Acute cor pulmonale. 3. Secondary pulmonary hypertension secondary to untreated obstructive sleep apnea. 4. Coronary artery disease. 5. Transient ischemic attack. 6. Metabolic encephalopathy. . Plan . D/C IN AM RX WRITTEN FOR 02 FOLLOW UP IN OFFICE OUT PT SLEEP NEVIN KING MD Oct 01, 2016 10:14
[2016-10-01 11:14] VITALS: BP 142/74
[2016-10-01] MEDS ORDERED: MAGNESIUM SULFATE 2GM 50 ML IV ONE (11:30)
[2016-10-01] MEDS ORDERED: POTASSIUM CHLORIDE 20 MEQ TABLET.ER. PO ONE (11:30)
--- NOTE | 2016-10-01 13:43 | PDOC ---
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 10/01/16 1343: CARDIO Progress Notes Date and Time Date of Service 10/01/2016 Time of Evaluation 1310 Subjective Subjective: No Chest Pain, No shortness of breath, No Palpitations, No Dizziness, Other (feels better today) Vitals Vitals Vital Signs Date Time Temp Pulse Resp B/P (MAP) Pulse Ox O2 Delivery O2 Flow Rate FiO2 10/01/16 11:14 97.4 69 18 142/74 (96) 96 Room Air 2.0 97.4 Weight Weight [ ] Input and Output Intake and Output Intake and Output 10/01/16 07:00 Intake Total 1110 ml Output Total 1975 ml Balance -865 ml Intake Oral 860 ml IV Total 250 ml Output Urine Total 1975 ml Laboratory Labs Laboratory Tests Test 09/30/16 16:27 09/30/16 21:00 10/01/16 07:28 10/01/16 07:53 Glucose (Fingerstick) 180 mg/dL (70-99) 175 mg/dL (70-99) 66 mg/dL (70-99) 97 mg/dL (70-99) Test 10/01/16 09:18 10/01/16 10:55 Sodium Level 140 mmol/L (136-145) Potassium Level 3.4 mmol/L (3.5-5.1) Chloride Level 96 mmol/L (98-107) Carbon Dioxide Level 39 mmol/L (21-32) Anion Gap 5 (6-14) Blood Urea Nitrogen 16 mg/dL (8-26) Creatinine 0.9 mg/dL (0.7-1.3) Estimated GFR (Cockcroft-Gault) 86.4 Glucose Level 170 mg/dL (70-99) Calcium Level 8.3 mg/dL (8.5-10.1) Magnesium Level 1.6 mg/dL (1.8-2.4) Glucose (Fingerstick) 162 mg/dL (70-99) Physical Exam HEENT: Neck Supple W Full Motion Chest: Symmetric LUNGS: Other (basilar crackles) Heart: S1S2, RRR (SR with no significant ectopies), murmurs (2/6 systolic murmur to LLS border) Abdomen: Soft N/T Extremities: No Calf Tenderness, Other (1+ bilateral LE pitting edema) Neurology: alert, oriented, follow commands Assessment Assessment 1. Acute on chronic respiratory failure with severe pulmonary HTN/CARLIE 2. Acute on chronic diastolic CHF: compensated 3. HTN: better controlled 4. DM2/HLP 5. Hx of NICM with nonobstructive CAD Recommendations 1. Transition to po lasix instead of chlorthalidone. Continue with aldactone, losartan. Replace K and Mg today 2. Dietitian to see pt. High Na intake contributing and pt admits to it. 3. Continue with secondary prevention 4. Follow up with cardiology in 2 weeks. records reviewed 1. Notable for persistent high Na food intake 2. C 06/02/2012 with nonobstructive CAD, EF 45-50%, moderate to severe AI/ MR and severe pulmonary HTN 3. 08/17/2014 MPI negative for remarkable defects 4. 05/28/2016 TTE LVEF 60% normal LV systolic function, RV size normal and function normal, mild to mod AI, PAP 32 mmHg, mildly dilated aortic root. 5. Positive for Lilly cardoza, NICM LAURI CRUZ MD 10/01/16 2243: CARDIO Progress Notes Plan Plan Pt. seen and examined. Agree with above OBSTETRICS NURSE note. Plan as noted above. 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 APRN Oct 01, 2016 13:43 LAURI CRUZ MD Oct 01, 2016 22:43
[2016-10-01 14:58] VITALS: BP 113/65
[2016-10-01 19:10] VITALS: BP 134/66
[2016-10-01] MEDS ORDERED: INSULIN DETEMIR 300 UNITS/3 ML INSULN.PEN. SQ SCH (21:00)
[2016-10-01] MEDS: ATORVASTATIN CALCIUM 40 MG TABLET. PO SCH (21:06)
[2016-10-01] MEDS: diphenhydrAMINE HCL 25 MG CAPSULE PO SCH (21:06)
[2016-10-01] MEDS: traMADol 50 MG TABLET PO PRN (21:06)
[2016-10-01 23:04] VITALS: BP 128/57
[2016-10-02 03:24] VITALS: BP 144/68
[2016-10-02] MEDS: VANCOMYCIN 1.25 GM in IV NORMAL SALINE 250ML 250 ML IV SCH (06:30)
[2016-10-02 07:00] VITALS: BP 181/68
[2016-10-02] MEDS: BUDESONIDE 0.5 MG/2 ML NEBU. NEB SCH (07:06)
[2016-10-02] MEDS: IPRATRPIUM/ALBUTEROL 0.5/2.5MG 3 ML NEBU. NEB SCH (07:07)
[2016-10-02] MEDS: POLYETHYLENE GLYCOL 3350 17 GM PACKET. PO SCH (07:29)
[2016-10-02] MEDS: SENNOSIDES 8.6 MG TABLET PO SCH (07:29)
[2016-10-02] MEDS: INSULIN ASPART 300 UNITS/3 ML INSULN.PEN SQ SCH ×2 (08:00→12:00)
[2016-10-02] MEDS ORDERED: FUROSEMIDE 40 MG TABLET. PO SCH (09:00)
[2016-10-02] MEDS ORDERED: POTASSIUM CHLORIDE 20 MEQ TABLET.ER. PO SCH (09:00)
[2016-10-02] MEDS: LOSARTAN POTASSIUM 50 MG TABLET. PO SCH (09:11)
[2016-10-02] MEDS: SPIRONOLACTONE 25 MG TABLET PO SCH (09:11)
[2016-10-02] MEDS: CLOPIDOGREL BISULFATE 75 MG TABLET PO SCH (09:11)
[2016-10-02] MEDS: metFORMIN 500 MG TABLET PO SCH (09:11)
[2016-10-02] MEDS ORDERED: FURO-68 PO (09:12)
[2016-10-02] MEDS ORDERED: POTA20TA82 PO (09:12)
[2016-10-02] MEDS: FAMOTIDINE 20 MG TABLET. PO SCH (09:12)
[2016-10-02] MEDS: ASPIRIN ENTERIC COATED 81 MG TABLET.DR. PO SCH (09:12)
[2016-10-02] MEDS: CARVEDILOL 6.25 MG TABLET. PO SCH (09:12)
[2016-10-02] MEDS ORDERED: INSU100V13 SQ (09:13)
[2016-10-02] MEDS: VANCOMYCIN PER PHARMACY MC PRN (09:21)
[2016-10-02 11:00] VITALS: BP 142/74
--- NOTE | 2016-10-02 11:24 | PDOC ---
PULMONARY PROGRESS NOTES Subjective LESS SOA, occ cough, no pain, Vitals Vital Signs Date Time Temp Pulse Resp B/P (MAP) Pulse Ox O2 Delivery O2 Flow Rate FiO2 10/02/16 09:12 72 181/68 10/02/16 08:00 Nasal Cannula 2.0 10/02/16 07:07 90 10/02/16 07:00 98.5 18 98.5 ROS: No Nausea, No Chest Pain, No Abdominal Pain, No Increase Cough Lungs: Crackles Cardiovascular: S1, S2 Abdomen: Soft Neuro Exam: Alert Extremities: No Edema Skin: Warm Labs Laboratory Tests Test 09/30/16 11:32 09/30/16 16:27 09/30/16 21:00 10/01/16 07:28 Glucose (Fingerstick) 165 mg/dL (70-99) 180 mg/dL (70-99) 175 mg/dL (70-99) 66 mg/dL (70-99) Test 10/01/16 07:53 10/01/16 09:18 10/01/16 10:55 10/01/16 16:56 Glucose (Fingerstick) 97 mg/dL (70-99) 162 mg/dL (70-99) 147 mg/dL (70-99) Sodium Level 140 mmol/L (136-145) Potassium Level 3.4 mmol/L (3.5-5.1) Chloride Level 96 mmol/L (98-107) Carbon Dioxide Level 39 mmol/L (21-32) Anion Gap 5 (6-14) Blood Urea Nitrogen 16 mg/dL (8-26) Creatinine 0.9 mg/dL (0.7-1.3) Estimated GFR (Cockcroft-Gault) 86.4 Glucose Level 170 mg/dL (70-99) Calcium Level 8.3 mg/dL (8.5-10.1) Magnesium Level 1.6 mg/dL (1.8-2.4) Test 10/01/16 20:53 Glucose (Fingerstick) 142 mg/dL (70-99) Laboratory Tests Test 10/01/16 16:56 10/01/16 20:53 Glucose (Fingerstick) 147 mg/dL (70-99) 142 mg/dL (70-99) Medications Active Scripts Medications Dose Route/Sig Max Daily Dose Days Date Category Proair Hfa Inhaler (Albuterol Sulfate) 8.5 Gm Hfa.aer.ad 1 Puff INH PRN Q6HRS PRN 09/28/16 Reported Advair 250-50 Diskus (Fluticasone/Salmeterol) 1 Each Disk.w.dev 1 Puff IH BID 09/28/16 Reported Miralax (Polyethylene Glycol 3350) 17 Gm Powd.pack 1 Packet PO DAILY 09/28/16 Reported Chlorthalidone 25 Mg Tablet 1 Tab PO DAILY 09/28/16 Reported Aspir 81 (Aspirin) 81 Mg Tablet.dr 81 Mg PO DAILY 09/28/16 Reported Maalox Advanced Suspension (Mag Hydrox/Aluminum Hyd/Simeth) 355 Ml Oral.susp 355 Ml PO PRN Q4HRS 09/28/16 Reported Aldactone (Spironolactone) 25 Mg Tablet 1 Tab PO DAILY 09/28/16 Reported Senokot (Sennosides) 8.6 Mg Tablet 2 Tab PO BID 09/28/16 Reported Klor-Con M20 (Potassium Chloride) 20 Meq Tab.er.prt 1 Tab PO DAILY 09/28/16 Reported Oxycodone Hcl 5 Mg Capsule 1 Cap PO PRN Q4HRS PRN 09/28/16 Reported Glucophage (Metformin Hcl) 500 Mg Tablet 1,000 Mg PO BIDWMEALS 09/28/16 Reported Cozaar (Losartan Potassium) 100 Mg Tablet 100 Mg PO DAILY 09/28/16 Reported Lantus Solostar (Insulin Glargine,Hum.rec.anlog) 100 Unit/1 Ml Insuln.pen 45 Unit SQ HS 09/28/16 Reported Pepcid (Famotidine) 20 Mg Tablet 20 Mg PO BID 09/28/16 Reported Benadryl (Diphenhydramine Hcl) 25 Mg Capsule 1 Cap PO QHS 09/28/16 Reported Valium (Diazepam) 5 Mg Tablet 5 Mg PO TID PRN 09/28/16 Reported Clopidogrel (Clopidogrel Bisulfate) 75 Mg Tablet 1 Tab PO DAILY 09/28/16 Reported Coreg (Carvedilol) 6.25 Mg Tablet 1 Tab PO BID 09/28/16 Reported Lipitor (Atorvastatin Calcium) 80 Mg Tablet 1 Tab PO DAILY 09/28/16 Reported Impression . IMPRESSION: 1. Plrer-rc-nbiwldy hypercapnic hypoxemic respiratory failure, suspect diastolic heart failure. 2. Acute cor pulmonale. 3. Secondary pulmonary hypertension secondary to untreated obstructive sleep apnea. 4. Coronary artery disease. 5. Transient ischemic attack. 6. Metabolic encephalopathy, resolved . Plan . ok to dc RX WRITTEN FOR 02 FOLLOW UP IN OFFICE OUT PT SLEEP STDY bronchodilator ics/laba discussed w rn, pt QUYNH DEXTER MD Oct 02, 2016 11:24
--- NOTE | 2016-10-02 12:58 | PDOC3 ---
Discharge Summary Visit Information Date of Admission: Sep 28, 2016 Date of Discharge: Oct 02, 2016 Admitting Diagnosis Comment: acute hypoxic respiratory failure with diastolic CHF exacerbation, acute, and PHTN PHTN DM2 anxiety moderate malnutrition obesity, BMI 36 bl leg multiple folliculitis with mild cellulitis h/o CAD 05/2016 Final Diagnosis Problems Medical Problems: (1) Acute exacerbation of congestive heart failure Status: Acute (2) Congestive heart failure Status: Acute (3) Essential hypertension Status: Acute (4) Hypoxia Status: Acute (5) Peripheral edema Status: Acute Brief Hospital Course Allergies Allergies Coded Allergies Type Severity Reaction Last Updated Verified lisinopril Allergy Mild COUGH 09/28/16 Yes Vital Signs Vital Signs Date Time Temp Pulse Resp B/P (MAP) Pulse Ox O2 Delivery O2 Flow Rate FiO2 10/02/16 11:00 98.4 63 18 142/74 (96) 93 Room Air 2.0 98.4 Lab Results Laboratory Tests Test 09/30/16 16:27 09/30/16 21:00 10/01/16 07:28 10/01/16 07:53 Glucose (Fingerstick) 180 mg/dL (70-99) 175 mg/dL (70-99) 66 mg/dL (70-99) 97 mg/dL (70-99) Test 10/01/16 09:18 10/01/16 10:55 10/01/16 16:56 10/01/16 20:53 Sodium Level 140 mmol/L (136-145) Potassium Level 3.4 mmol/L (3.5-5.1) Chloride Level 96 mmol/L (98-107) Carbon Dioxide Level 39 mmol/L (21-32) Anion Gap 5 (6-14) Blood Urea Nitrogen 16 mg/dL (8-26) Creatinine 0.9 mg/dL (0.7-1.3) Estimated GFR (Cockcroft-Gault) 86.4 Glucose Level 170 mg/dL (70-99) Calcium Level 8.3 mg/dL (8.5-10.1) Magnesium Level 1.6 mg/dL (1.8-2.4) Glucose (Fingerstick) 162 mg/dL (70-99) 147 mg/dL (70-99) 142 mg/dL (70-99) Laboratory Tests Test 10/01/16 16:56 10/01/16 20:53 Glucose (Fingerstick) 147 mg/dL (70-99) 142 mg/dL (70-99) Brief Hospital Course Mr. Forde is a 61 old male admitted for SOA,. dx with above, DIuresed. Lytes ok., Likely also undiagnosed CARLIE, needs OP sleep study prior to dc on CPAP,. 6MW done needs O2 - has been set up. Got vanc for "cellulitis on legs", no growth, non septic looking, no fevers, no white ct,Feet looks ok, no need for PO antibiotic on dc, JUst good foot hygiene Dw pulmo, pt and RN Dipso; Home with O2 COnsult: cards, pulmo Discharge Information Condition at Discharge: Improved, Stable Disposition/Orders: D/C to Home Scheduled Aspirin (Aspir 81), 81 MG PO DAILY, (Reported) Atorvastatin Calcium (Lipitor), 1 TAB PO DAILY, (Reported) Carvedilol (Coreg), 1 TAB PO BID, (Reported) Clopidogrel Bisulfate (Clopidogrel), 1 TAB PO DAILY, (Reported) Diphenhydramine Hcl (Benadryl), 1 CAP PO QHS, (Reported) Famotidine (Pepcid), 20 MG PO BID, (Reported) Fluticasone/Salmeterol (Advair 250-50 Diskus), 1 PUFF IH BID, (Reported) Furosemide (Lasix), 1 TAB PO DAILY Insulin Detemir (Levemir), 30 UNIT SQ QHS Losartan Potassium (Cozaar), 100 MG PO DAILY, (Reported) Mag Hydrox/Aluminum Hyd/Simeth (Maalox Advanced Suspension), 355 ML PO PRN Q4HRS , (Reported) Metformin Hcl (Glucophage), 1,000 MG PO BIDWMEALS, (Reported) Polyethylene Glycol 3350 (Miralax), 1 PACKET PO DAILY, (Reported) Potassium Chloride (Potassium Chloride), 40 MEQ PO DAILY Sennosides (Senokot), 2 TAB PO BID, (Reported) Spironolactone (Aldactone), 1 TAB PO DAILY, (Reported) Scheduled PRN Albuterol Sulfate (Proair Hfa Inhaler), 1 PUFF INH PRN Q6HRS PRN for SHORTNESS OF BREATH, (Reported) Diazepam (Valium), 5 MG PO TID PRN for ANXIETY, (Reported) Oxycodone Hcl (Oxycodone Hcl), 1 CAP PO PRN Q4HRS PRN for CHEST PAIN, (Reported) Discontinued Medications Chlorthalidone (Chlorthalidone), 1 TAB PO DAILY, (Reported) Insulin Glargine,Hum.rec.anlog (Lantus Solostar), 45 UNIT SQ HS, (Reported) Potassium Chloride (Klor-Con M20), 1 TAB PO DAILY, (Reported) DENIZ RUTLEDGE MD Oct 02, 2016 12:58
[2016-10-02] MEDS ORDERED: LOPERAMIDE 2 MG CAPSULE PO PRN (13:30)
== END 2016-10-02 15:30 | disposition home or self-care (01) | DRG 291 ==
LOC: ER 16:37 → 2 NORTH 19:15
PROVIDERS: ADMIT Internal Medicine; ATTEND Internal Medicine
PROC: 5A09357 Assistance with Respiratory Ventilation, Less than 24 Consecutive Hours, Continuous Positive Airway Pressure (ICD-10-PCS; principal; 2016-09-30)
DX: I11.0 Hypertensive heart disease with heart failure (principal); G93.41 Metabolic encephalopathy; J96.21 Acute and chronic respiratory failure with hypoxia; J96.22 Acute and chronic respiratory failure with hypercapnia; E44.0 Moderate protein-calorie malnutrition; L03.116 Cellulitis of left lower limb; L03.115 Cellulitis of right lower limb; I42.9 Cardiomyopathy, unspecified; I27.81 Cor pulmonale (chronic); M19.90 Unspecified osteoarthritis, unspecified site; I50.33 Acute on chronic diastolic (congestive) heart failure; E11.9 Type 2 diabetes mellitus without complications; Z68.34 Body mass index [BMI] 34.0-34.9, adult; E66.01 Morbid (severe) obesity due to excess calories; E78.5 Hyperlipidemia, unspecified; G47.33 Obstructive sleep apnea (adult) (pediatric); I25.10 Atherosclerotic heart disease of native coronary artery without angina pectoris; F41.9 Anxiety disorder, unspecified; I27.2 Other secondary pulmonary hypertension; J44.9 Chronic obstructive pulmonary disease, unspecified; K21.9 Gastro-esophageal reflux disease without esophagitis; L73.9 Follicular disorder, unspecified; Z79.4 Long term (current) use of insulin; Z79.899 Other long term (current) drug therapy; Z82.49 Family history of ischemic heart disease and other diseases of the circulatory system; Z86.73 Personal history of transient ischemic attack (TIA), and cerebral infarction without residual deficits; Z91.19 Patient's noncompliance with other medical treatment and regimen; I25.2 Old myocardial infarction
CPT/HCPCS: 36415; 36600; 71010; 80048; 80053; 80061; 80202; 82805; 82962; 83036; 83735; 83880; 84443; 84484; 85027; 85610; 85730; 93005; 93306; 93970; 94250; 94620; 94640; 94660; 94760; 96365; 96375; J1815; J1940; J3370; J7040; J7050; J7060; J7620; J7626; Q0163; 97116; 97530; 97535; 99285-25; J7030